=== PATIENT | female | born 1950 | race Two or more races ===

== ENCOUNTER 2019-07-07 14:40 | Inpatient (IN) | payer MEDICARE, OTHER ==
--- NOTE | 2019-07-07 14:59 | PDOC ---
Rapid Medical Evaluation Time Seen by Provider: 07/07/19 14:55 Medical Evaluation: Allergies Allergy/AdvReac Type Severity Reaction Status Date / Time No Known Allergies Allergy Verified 07/07/19 13:47 07/07/19 14:55 Pt with PMH of demention, presents for admission of an infected bed sore on the R buttock since Friday. She was sent from Wound Care. PCP is Dr. Salamanca. Exam: Deferred to provider Orders: Labs, Alvarez culture, IV insert Pt to proceed to the ER for further evaluation Discharge Disposition - Diagnosis Wound infection - Referrals - Patient Instructions - Post Discharge Activity
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
[2019-07-07 16:19] LABS: BASO % 0.5 % (0-2.0); EOS % 0.1 % (0-4.5); HEMATOCRIT 40.5 % (32.4-45.2); HEMOGLOBIN 13.1 GM/dL (10.7-15.3); LYMPH % 15.9 % (8-40); MCH 33.6 pg (25.7-33.7); MCHC 32.5 g/dl (32.0-36.0); MEAN CELL VOLUME 103.6 fl (80-96); MEAN PLT VOLUME 10.5 fl (7.5-11.1); NEUT % 76.5 % (42.8-82.8); PLATELET COUNT 130 K/MM3 (134-434); RBC 3.91 M/mm3 (3.60-5.2); RDW 16.6 % (11.6-15.6); WHITE BLOOD COUNT 18.9 K/mm3 (4.0-10.0)
[2019-07-07 16:32] LABS: VENOUS PC02 32.5 mmHg (38-52); VENOUS PH 7.45 (7.31-7.41); VENOUS PO2 49.4 mmHg (28-48)
[2019-07-07 16:47] LABS: ALBUMIN 2.3 g/dl (3.4-5.0); BILIRUBIN,TOTAL 0.5 mg/dL (0.2-1); BLOOD UREA NITROGEN 75.2 mg/dL (7-18); CALCIUM 8.2 mg/dL (8.5-10.1); CREATININE 1.7 mg/dL (0.55-1.3); POTASSIUM 4.3 mmol/L (3.5-5.1); TOT PROT 6.8 g/dl (6.4-8.2)
[2019-07-07 17:19] LABS: EPI CELLS 8.1 /HPF (0-5/HPF); HYALINE CASTS 33 /lpf (0-8); URINE APPEARANCE CLOUDY; URINE BACTERIA 4.3 /hpf (NEGATIVE); URINE BILIRUBIN NEGATIVE (NEGATIVE); URINE COLOR YELLOW; URINE GLUCOSE (UA) NEGATIVE (NEGATIVE); URINE KETONE NEGATIVE (NEGATIVE); URINE LEUK ESTERASE 1+ (NEGATIVE); URINE NITRITE NEGATIVE (NEGATIVE); URINE PROTEIN TRACE (NEGATIVE); URINE RBC 7 /hpf (0-4); URINE WBC 11 /hpf (0-5)
[2019-07-07] MEDS ORDERED: LACTATED RINGERS SOLUTION 1000 ML INFUS.BAG IV ONE (17:28)
[2019-07-07] MEDS ORDERED: ACETAMINOPHEN 1000 MG/100 ML VIAL (NON FORMULARY) IVPB ONE (17:44)
[2019-07-07] MEDS ORDERED: PIPERACILLIN/TAZOB 3.375 GM 3.375 GM in DEXTROSE 5%-WATER - 50 ML IVPB ONE (17:44)
--- NOTE | 2019-07-07 17:52 | PDOC ---
Documentation entered by Lisette Howard SCRIBE, acting as scribe for Adina Kulkarni MD. Adina Kulkarni MD: This documentation has been prepared by the Lee moreira Adrianna, SCRIBE, under my direction and personally reviewed by me in its entirety. I confirm that the documentation accurately reflects all work, treatment, procedures, and medical decision making performed by me. Attending Attestation - Resident Resident Name: Dylan Gonazlez - ED Attending Attestation I have performed the following: I have examined & evaluated the patient, The case was reviewed & discussed with the resident, I agree w/resident's findings & plan, Exceptions are as noted - HPI HPI: The patient is a 69 year old female, with a significant PMH of dementia and unstageable ulcer on bilateral buttox, who presents to the ED for evaluation of decubitus ulcer. Per pt daughter, she has an aid at home. Has had a decubitus ulcer on the left buttock 5 days ago. The decubitus noted on the right buttock has been present for the past 2 days No fever or chills No prior decubiti Allergies: NKA, NKDA Surgical History: Left tibia repair Social History: Denies EtOH, tobacco, or illicit drug use PCP: Dr. Garcia 07/07/19 17:02 - Physicial Exam PE: 07/07/19 16:58 GENERAL: The patient is in no acute distress, awake and alert. ENT: Ears normal, nares patent, oropharynx clear without exudates. DRY mucous membranes. Poor dentition NECK: Normal range of motion, supple, no nuchal rigidity (+) LAD LUNGS: Breath sounds equal, clear to auscultation bilaterally. No wheezes, and no crackles. HEART: Tachycardia, regular rhythm, normal S1 and S2 without murmur ABDOMEN: Soft, nontender EXTREMITIES: Normal range of motion, no edema. NEUROLOGICAL: Pt non verbal, Cranial nerves II through XII grossly intact. SKIN: Left buttock: decubitus noted, area of skin discoloration measureing 6 cm in diameter, a central opening noted which probes 1-2 cm Right buttocks with deroofed blister?, several, several other smaller blisters noted, skin appears bruised, no purulence noted, no bone visualized - Medical Decision Making 01/15/20 16:55 69-year-old female presenting to the emergency department with daughter due to sacral decubitus Pt daughter became concerned because because the rapidity of the progression of this decubitus DD: Pressure sore, deep tissue infection (necrotizing faciitis), phemphigus vulgaris /TEN/ EKG: Sinus tachycardia, rate of 128 bpm, left axis deviation, no ST elevation or depression, T waves are upright, no pathological Q's Awaiting lab testing Awaiting CT abd and pelvis (r/o necrotizing faciitis) Pt seen in the ER by Dr garcia Will admit this patient 07/07/19 17:04 07/07/19 17:41 Laboratory Tests 07/07/19 07/07/19 07/07/19 16:00 16:00 16:00 WBC 18.9 H Hgb 13.1 Hct 40.5 Plt Count 130 L Sodium 158 H Potassium 4.3 Chloride 129 H Carbon Dioxide 23 Anion Gap 6 L BUN 75.2 H Creatinine 1.7 H Random Glucose 326 H Lactic Acid 3.3 H* Urine WBC (Auto) Urine RBC (Auto) 07/07/19 16:30 WBC Hgb Hct Plt Count Sodium Potassium Chloride Carbon Dioxide Anion Gap BUN Creatinine Random Glucose Lactic Acid Urine WBC (Auto) 11 Urine RBC (Auto) 7 CT: subcutaneous inflammatory changes of the buttocks and coccygeal region without abscess or air, no pelvic fracture or osteomyeleitis 07/07/19 17:45 07/07/19 17:49 Will admit for infected sacral decubitus ulcer Dr. Garcia aware of this patient Dr. Lou has seen this patient in the wound care clinic Discharge - Discharge Information Problems reviewed: Yes Clinical Impression/Diagnosis: Wound infection Condition: Fair - Admission Yes - Follow up/Referral - Patient Discharge Instructions - Post Discharge Activity
[2019-07-07] MEDS ORDERED: ACETAMINOPHEN INJECTION 100 ML IVPB ONE (17:54)
[2019-07-07] MEDS ORDERED: PIPERACILLIN/TAZOB 3.375 GM 3.375 GM/50 ML BAG IVPB ONE (18:07)
--- NOTE | 2019-07-07 19:09 | HP ---
Admitting History and Physical - Primary Care Physician PCP: Clinton Salamanca - Admission History of Present Illness: 69 y/o female presenting to [facility] ER from the wound care clinic for further evaluation of bilateral sacral decubitus ulcers. Pt is severely demented and nonverbal at baseline. Pts daughter is at bedside and reports she first noted a wound to the left gluteal region one week ago. Tried to keep the area clean and placed the pt on a donut pillow. Then noticed a lesion on the right gluteal region two days ago. The right side has rapidly worsened. Daughter denies fevers , chills, diaphoresis, or change in behavior. Was evaluated at PCPs office and referred to the wound care. No recent antibiotic usage. - Smoking History Smoking history: Never smoked Have you smoked in the past 12 months: No - Alcohol/Substance Use Hx Alcohol Use: No Home Medications - Allergies Allergies/Adverse Reactions: Allergies Allergy/AdvReac Type Severity Reaction Status Date / Time No Known Allergies Allergy Verified 07/07/19 13:47 - Home Medications Home Medications: Ambulatory Orders Alendronate Sodium [Fosamax] 1 tab PO DAILY 07/07/19 Ammonium Lactate [Ignacia-Hydrolac] 1 applic TD BID 07/08/19 Physical Examination Vital Signs: Vital Signs Temperature 100.0 F H 07/07/19 18:10 Pulse Rate 92 H 07/07/19 18:10 Respiratory Rate 23 H 07/07/19 16:15 Blood Pressure 114/82 07/07/19 18:10 O2 Sat by Pulse Oximetry (%) 98 07/07/19 18:10 Constitutional: Yes: No Distress HENT: Yes: Atraumatic Neck: Yes: Supple Cardiovascular: Yes: Regular Rate and Rhythm Respiratory: Yes: CTA Bilaterally Gastrointestinal: Yes: Normal Bowel Sounds Extremities: Yes: Other (decub both buttocs, R >L) Neurological: Yes: Alert Labs: CBC, BMP 07/07/19 16:00 07/07/19 16:00 Imaging - Results Cat Scan: Report Reviewed Problem List - Problems (1) Decubitus ulcer Assessment/Plan: iv abx wound care surgery/id on board Code(s): L89.90 - PRESSURE ULCER OF UNSPECIFIED SITE, UNSPECIFIED STAGE (2) Dementia Code(s): F03.90 - UNSPECIFIED DEMENTIA WITHOUT BEHAVIORAL DISTURBANCE (3) Wound infection Code(s): T14.8XXA - OTHER INJURY OF UNSPECIFIED BODY REGION, INITIAL ENCOUNTER; L08.9 - LOCAL INFECTION OF THE SKIN AND SUBCUTANEOUS TISSUE, UNSP Assessment/Plan Laboratory Tests 07/07/19 07/07/19 07/07/19 16:00 16:00 16:00 WBC 18.9 H RBC 3.91 Hgb 13.1 Hct 40.5 MCV 103.6 H MCH 33.6 MCHC 32.5 RDW 16.6 H Plt Count 130 L MPV 10.5 Absolute Neuts (auto) 14.5 H Neutrophils % 76.5 Lymphocytes % 15.9 Monocytes % 7.0 Eosinophils % 0.1 Basophils % 0.5 Nucleated RBC % 0 VBG pH POC VBG pCO2 POC VBG pO2 VBG HCO3 VBG O2 Sat (Mary) VBG Base Excess Sodium 158 H Potassium 4.3 Chloride 129 H Carbon Dioxide 23 Anion Gap 6 L BUN 75.2 H Creatinine 1.7 H Est GFR (CKD-EPI)AfAm 34.56 Est GFR (CKD-EPI)NonAf 29.82 Random Glucose 326 H Lactic Acid 3.3 H* Calcium 8.2 L Total Bilirubin 0.5 AST 55 H ALT 59 Alkaline Phosphatase 65 Total Protein 6.8 Albumin 2.3 L Urine Color Urine Appearance Urine pH Ur Specific [place] Urine Protein Urine Glucose (UA) Urine Ketones Urine Blood Urine Nitrite Urine Bilirubin Urine Urobilinogen Ur Leukocyte Esterase Urine WBC (Auto) Urine RBC (Auto) Urine Casts (Auto) U Pathogenic Cast Auto U Epithel Cells (Auto) Urine Bacteria (Auto) 07/07/19 07/07/19 16:20 16:30 WBC RBC Hgb Hct MCV MCH MCHC RDW Plt Count MPV Absolute Neuts (auto) Neutrophils % Lymphocytes % Monocytes % Eosinophils % Basophils % Nucleated RBC % VBG pH 7.45 H POC VBG pCO2 32.5 L POC VBG pO2 49.4 H VBG HCO3 22.3 L VBG O2 Sat (Mary) 82.8 H VBG Base Excess -0.5 Sodium Potassium Chloride Carbon Dioxide Anion Gap BUN Creatinine Est GFR (CKD-EPI)AfAm Est GFR (CKD-EPI)NonAf Random Glucose Lactic Acid Calcium Total Bilirubin AST ALT Alkaline Phosphatase Total Protein Albumin Urine Color Yellow Urine Appearance Cloudy Urine pH 5.0 Ur Specific [place] 1.026 Urine Protein Trace Urine Glucose (UA) Negative Urine Ketones Negative Urine Blood Negative Urine Nitrite Negative Urine Bilirubin Negative Urine Urobilinogen 1.0 Ur Leukocyte Esterase 1+ H Urine WBC (Auto) 11 Urine RBC (Auto) 7 Urine Casts (Auto) 33 U Pathogenic Cast Auto Negative U Epithel Cells (Auto) 8.1 Urine Bacteria (Auto) 4.3 Active Medications Generic Name Dose Route Start Last Admin Trade Name Freq PRN Reason Stop Dose Admin Acetaminophen 1,000 mg 07/07/19 19:11 Ofirmev Injection - IVPB Q6H PRN FEVER Heparin Sodium (Porcine) 5,000 unit 07/07/19 22:00 07/08/19 10:55 Heparin - SQ 5,000 unit BID [facility] Administration Sodium Chloride 1,000 mls @ 75 mls/hr 07/07/19 23:45 07/08/19 00:25 1/2 Normal Saline IV 75 mls/hr ASDIR [facility] Administration
[2019-07-07] MEDS: HEPARIN NA (PORCINE) 5,000 UNITS/ML 1ML VIAL SQ SCH (22:40)
[2019-07-08 00:12] VITALS: BMI 25.0
[2019-07-08] MEDS: SODIUM CHLORIDE 0.45% 1,000 ML IV SCH (00:25)
[2019-07-08 07:02] LABS: BASO % 0.7 % (0-2.0); EOS % 0.2 % (0-4.5); HEMATOCRIT 38.2 % (32.4-45.2); HEMOGLOBIN 12.5 GM/dL (10.7-15.3); LYMPH % 19.3 % (8-40); MCHC 32.6 g/dl (32.0-36.0); MEAN CELL VOLUME 104.2 fl (80-96); MEAN PLT VOLUME 9.9 fl (7.5-11.1); MONO % 6.1 % (3.8-10.2); NEUT % 73.7 % (42.8-82.8); PLATELET COUNT 105 K/MM3 (134-434); RBC 3.66 M/mm3 (3.60-5.2); RDW 16.5 % (11.6-15.6); WHITE BLOOD COUNT 17.8 K/mm3 (4.0-10.0)
[2019-07-08 07:38] LABS: BILIRUBIN,TOTAL 0.9 mg/dL (0.2-1); BLOOD UREA NITROGEN 55.8 mg/dL (7-18); CALCIUM 8.4 mg/dL (8.5-10.1); CREATININE 1.2 mg/dL (0.55-1.3); POTASSIUM 3.9 mmol/L (3.5-5.1); TOT PROT 6.2 g/dl (6.4-8.2)
[2019-07-08] MEDS: HEPARIN NA (PORCINE) 5,000 UNITS/ML 1ML VIAL SQ SCH ×2 (10:55→21:12)
--- NOTE | 2019-07-08 11:55 | EKG ---
Test Reason : Blood Pressure : / mmHG Vent. Rate : 128 BPM Atrial Rate : 128 BPM P-R Int : 128 ms QRS Dur : 080 ms QT Int : 300 ms P-R-T Axes : 075 -37 012 degrees QTc Int : 438 ms SINUS TACHYCARDIA WITH PREMATURE ATRIAL COMPLEXES POSSIBLE LEFT ATRIAL ENLARGEMENT LEFT AXIS DEVIATION INFERIOR INFARCT , AGE UNDETERMINED ANTEROLATERAL INFARCT , AGE UNDETERMINED ABNORMAL ECG NO PREVIOUS ECGS AVAILABLE Confirmed by FRANCIS TODD MD ([id number]) on 07/08/2019 11:55:35 AM Referred By: Confirmed By:FRANCIS TODD MD
--- NOTE | 2019-07-08 14:39 | CON.ID ---
Consult Consult Specialty:: infectious diseases Referred by:: dr foster Reason for Consultation:: non healing decubitus ulcer - History of Present Illness Chief Complaint: non healing ulcer History of Present Illness: history obtained from the charts and the daughter 69 y/o female presenting to [facility] ER from the wound care clinic for further evaluation of bilateral sacral decubitus ulcers. Pt is severely demented and nonverbal at baseline. Pts daughter is at bedside and reports she first noted a wound to the left gluteal region one week ago. Tried to keep the area clean and placed the pt on a donut pillow. Then noticed a lesion on the right gluteal region two days ago. The right side has rapidly worsened. Daughter denies fevers , chills, diaphoresis, or change in behavior. - History Source History Provided By: Family Member Limitations to Obtaining History: Clinical Condition - Past Medical History ...: No - Alcohol/Substance Use Hx Alcohol Use: No - Smoking History Smoking history: Never smoked Have you smoked in the past 12 months: No Home Medications - Allergies Allergies/Adverse Reactions: Allergies Allergy/AdvReac Type Severity Reaction Status Date / Time No Known Allergies Allergy Verified 07/07/19 13:47 - Home Medications Home Medications: Ambulatory Orders Alendronate Sodium [Fosamax] 1 tab PO DAILY 07/07/19 Ammonium Lactate [Ignacia-Hydrolac] 1 applic TD BID 07/08/19 Review of Systems Unable to obtain ROS, reason: unable to obtain Physical Exam Vital Signs: Vital Signs Temperature 98.0 F 07/08/19 06:41 Pulse Rate 102 H 07/08/19 06:41 Respiratory Rate 18 07/08/19 06:41 Blood Pressure 110/69 07/08/19 06:41 O2 Sat by Pulse Oximetry (%) 100 07/07/19 22:50 Constitutional: Yes: No Distress, Calm HENT: Yes: Atraumatic Cardiovascular: Yes: Regular Rate and Rhythm Respiratory: Yes: Regular, CTA Bilaterally Gastrointestinal: Yes: Normal Bowel Sounds, Soft Musculoskeletal: Yes: Other Extremities: Yes: Other Wound/Incision: Yes: Other (decubitus ulcer) Neurological: Yes: Alert Psychiatric: Yes: Alert Labs: CBC, BMP 07/08/19 06:00 07/08/19 06:00 Imaging - Results Chest X-ray: Report Reviewed, Image Reviewed Cat Scan: Report Reviewed, Image Reviewed Assessment/Plan Problem List - Problems (1) Decubitus ulcer Code(s): L89.90 - PRESSURE ULCER OF UNSPECIFIED SITE, UNSPECIFIED STAGE (2) Dementia Code(s): F03.90 - UNSPECIFIED DEMENTIA WITHOUT BEHAVIORAL DISTURBANCE (3) Wound infection Code(s): T14.8XXA - OTHER INJURY OF UNSPECIFIED BODY REGION, INITIAL ENCOUNTER; L08.9 - LOCAL INFECTION OF THE SKIN AND SUBCUTANEOUS TISSUE, UNSP plan abx wound care off loading rest as per the team
--- NOTE | 2019-07-08 18:47 | PN ---
Progress Note, Physician - Current Medication List Current Medications: Active Medications Acetaminophen (Ofirmev Injection -) 1,000 mg IVPB Q6H PRN PRN Reason: FEVER Heparin Sodium (Porcine) (Heparin -) 5,000 unit SQ BID [facility] Last Admin: 07/08/19 10:55 Dose: 5,000 unit Sodium Chloride (1/2 Normal Saline) 1,000 mls @ 75 mls/hr IV ASDIR [facility] Last Admin: 07/08/19 00:25 Dose: 75 mls/hr - Objective Vital Signs: Vital Signs Temperature 97.3 F L 07/08/19 14:35 Pulse Rate 100 H 07/08/19 14:35 Respiratory Rate 18 07/08/19 16:30 Blood Pressure 101/62 07/08/19 14:35 O2 Sat by Pulse Oximetry (%) 99 07/08/19 16:30 Constitutional: Yes: No Distress HENT: Yes: Atraumatic Neck: Yes: Supple Cardiovascular: Yes: Regular Rate and Rhythm Respiratory: Yes: CTA Bilaterally Gastrointestinal: Yes: Normal Bowel Sounds Musculoskeletal: Yes: Other (decub ulcers at buttocks) Neurological: Yes: Alert, Oriented Labs: CBC, BMP 07/08/19 06:00 07/08/19 06:00 Problem List - Problems (1) Decubitus ulcer Assessment/Plan: iv abx wound care surgery/id on board Code(s): L89.90 - PRESSURE ULCER OF UNSPECIFIED SITE, UNSPECIFIED STAGE (2) Dementia Code(s): F03.90 - UNSPECIFIED DEMENTIA WITHOUT BEHAVIORAL DISTURBANCE (3) Wound infection Code(s): T14.8XXA - OTHER INJURY OF UNSPECIFIED BODY REGION, INITIAL ENCOUNTER; L08.9 - LOCAL INFECTION OF THE SKIN AND SUBCUTANEOUS TISSUE, UNSP
[2019-07-09] MEDS: SODIUM CHLORIDE 0.45% 1,000 ML IV SCH ×2 (05:06→17:31)
[2019-07-09] MEDS: HEPARIN NA (PORCINE) 5,000 UNITS/ML 1ML VIAL SQ SCH ×2 (11:30→21:17)
--- NOTE | 2019-07-09 12:16 | PN ---
Progress Note, Physician - Current Medication List Current Medications: Active Medications Acetaminophen (Ofirmev Injection -) 1,000 mg IVPB Q6H PRN PRN Reason: FEVER Heparin Sodium (Porcine) (Heparin -) 5,000 unit SQ BID [facility] Last Admin: 07/09/19 11:30 Dose: 5,000 unit Sodium Chloride (1/2 Normal Saline) 1,000 mls @ 75 mls/hr IV ASDIR [facility] Last Admin: 07/09/19 05:06 Dose: 75 mls/hr - Objective Vital Signs: Vital Signs Temperature 98.4 F 07/09/19 06:00 Pulse Rate 94 H 07/09/19 06:00 Respiratory Rate 18 07/09/19 06:00 Blood Pressure 102/47 L 07/09/19 06:00 O2 Sat by Pulse Oximetry (%) 98 07/08/19 21:00 Constitutional: Yes: No Distress HENT: Yes: Atraumatic Neck: Yes: Supple Cardiovascular: Yes: Regular Rate and Rhythm Respiratory: Yes: CTA Bilaterally Gastrointestinal: Yes: Normal Bowel Sounds Extremities: Yes: Other (decub ulcer R buttock) Neurological: Yes: Alert, Oriented Labs: CBC, BMP 07/08/19 06:00 07/08/19 06:00 Problem List - Problems (1) Decubitus ulcer Assessment/Plan: iv abx wound care surgery/id on board Code(s): L89.90 - PRESSURE ULCER OF UNSPECIFIED SITE, UNSPECIFIED STAGE (2) Dementia Code(s): F03.90 - UNSPECIFIED DEMENTIA WITHOUT BEHAVIORAL DISTURBANCE (3) Wound infection Code(s): T14.8XXA - OTHER INJURY OF UNSPECIFIED BODY REGION, INITIAL ENCOUNTER; L08.9 - LOCAL INFECTION OF THE SKIN AND SUBCUTANEOUS TISSUE, UNSP
--- NOTE | 2019-07-09 15:30 | PN ---
Progress Note, Physician History of Present Illness: stable doing well no issues - Current Medication List Current Medications: Active Medications Acetaminophen (Ofirmev Injection -) 1,000 mg IVPB Q6H PRN PRN Reason: FEVER Heparin Sodium (Porcine) (Heparin -) 5,000 unit SQ BID [facility] Last Admin: 07/09/19 11:30 Dose: 5,000 unit Sodium Chloride (1/2 Normal Saline) 1,000 mls @ 75 mls/hr IV ASDIR [facility] Last Admin: 07/09/19 05:06 Dose: 75 mls/hr - Objective Vital Signs: Vital Signs Temperature 98.7 F 07/09/19 14:00 Pulse Rate 99 H 07/09/19 14:00 Respiratory Rate 18 07/09/19 14:00 Blood Pressure 109/45 L 07/09/19 14:00 O2 Sat by Pulse Oximetry (%) 98 07/08/19 21:00 Constitutional: Yes: No Distress, Calm Cardiovascular: Yes: S1, S2 Respiratory: Yes: Regular, CTA Bilaterally Gastrointestinal: Yes: Normal Bowel Sounds, Soft Musculoskeletal: Yes: WNL Extremities: Yes: WNL Wound/Incision: Yes: Dressing Dry and Intact Neurological: Yes: Alert, Other Labs: CBC, BMP 07/08/19 06:00 07/08/19 06:00 Assessment/Plan Problem List - Problems (1) Decubitus ulcer Code(s): L89.90 - PRESSURE ULCER OF UNSPECIFIED SITE, UNSPECIFIED STAGE (2) Dementia Code(s): F03.90 - UNSPECIFIED DEMENTIA WITHOUT BEHAVIORAL DISTURBANCE (3) Wound infection Code(s): T14.8XXA - OTHER INJURY OF UNSPECIFIED BODY REGION, INITIAL ENCOUNTER; L08.9 - LOCAL INFECTION OF THE SKIN AND SUBCUTANEOUS TISSUE, UNSP plan abx cx result noted wound care off loading rest as per the team
[2019-07-09] MEDS: ACETAMINOPHEN 1000 MG/100 ML VIAL (NON FORMULARY) IVPB PRN (17:33)
[2019-07-09] MEDS: AMPICILLIN NA/SULBACTAM NA 3 GM in SODIUM CHLORIDE 100 ML IVPB SCH ×2 (17:40→18:11)
[2019-07-10] MEDS: AMPICILLIN NA/SULBACTAM NA 3 GM in SODIUM CHLORIDE 100 ML IVPB SCH ×3 (02:42→17:35)
[2019-07-10] MEDS: SODIUM CHLORIDE 0.45% 1,000 ML IV SCH (07:23)
[2019-07-10] MEDS: HEPARIN NA (PORCINE) 5,000 UNITS/ML 1ML VIAL SQ SCH (09:19)
--- NOTE | 2019-07-10 13:39 | PN ---
Progress Note, Physician - Current Medication List Current Medications: Active Medications Acetaminophen (Ofirmev Injection -) 1,000 mg IVPB Q6H PRN PRN Reason: FEVER Last Admin: 07/09/19 17:33 Dose: 1,000 mg Heparin Sodium (Porcine) (Heparin -) 5,000 unit SQ BID [facility] Last Admin: 07/10/19 09:19 Dose: 5,000 unit Sodium Chloride (1/2 Normal Saline) 1,000 mls @ 75 mls/hr IV ASDIR [facility] Last Admin: 07/10/19 07:23 Dose: 75 mls/hr Ampicillin Sodium/Sulbactam (Sodium 3 gm/ Sodium Chloride) 100 mls @ 200 mls/ hr IVPB Q8H-IV [facility] Last Admin: 07/10/19 09:19 Dose: 200 mls/hr - Objective Vital Signs: Vital Signs Temperature 97.8 F 07/10/19 09:30 Pulse Rate 95 H 07/10/19 09:30 Respiratory Rate 20 07/10/19 09:30 Blood Pressure 100/51 L 07/10/19 09:30 O2 Sat by Pulse Oximetry (%) 98 07/09/19 21:00 Constitutional: Yes: No Distress HENT: Yes: Atraumatic Neck: Yes: Supple Cardiovascular: Yes: Regular Rate and Rhythm Respiratory: Yes: CTA Bilaterally Gastrointestinal: Yes: Normal Bowel Sounds Extremities: Yes: WNL, Other (decub ulcer R buttocks) Neurological: Yes: Alert, Oriented Labs: CBC, BMP 07/08/19 06:00 07/08/19 06:00 Problem List - Problems (1) Decubitus ulcer Assessment/Plan: iv abx wound care surgery/id on board Code(s): L89.90 - PRESSURE ULCER OF UNSPECIFIED SITE, UNSPECIFIED STAGE (2) Dementia Code(s): F03.90 - UNSPECIFIED DEMENTIA WITHOUT BEHAVIORAL DISTURBANCE (3) Wound infection Code(s): T14.8XXA - OTHER INJURY OF UNSPECIFIED BODY REGION, INITIAL ENCOUNTER; L08.9 - LOCAL INFECTION OF THE SKIN AND SUBCUTANEOUS TISSUE, UNSP
--- NOTE | 2019-07-10 16:06 | PN ---
Progress Note, Physician History of Present Illness: Pt is resting comfortably. Daughter at bedside states she has become more responsive. Currently afebrile. - Current Medication List Current Medications: Active Medications Acetaminophen (Ofirmev Injection -) 1,000 mg IVPB Q6H PRN PRN Reason: FEVER Last Admin: 07/09/19 17:33 Dose: 1,000 mg Heparin Sodium (Porcine) (Heparin -) 5,000 unit SQ BID [facility] Last Admin: 07/10/19 09:19 Dose: 5,000 unit Sodium Chloride (1/2 Normal Saline) 1,000 mls @ 75 mls/hr IV [facility]IR [facility] Last Admin: 07/10/19 07:23 Dose: 75 mls/hr Ampicillin Sodium/Sulbactam (Sodium 3 gm/ Sodium Chloride) 100 mls @ 200 mls/ hr IVPB Q8H-IV [facility] Last Admin: 07/10/19 09:19 Dose: 200 mls/hr - Objective Vital Signs: Vital Signs Temperature 97.8 F 07/10/19 09:30 Pulse Rate 95 H 07/10/19 09:30 Respiratory Rate 07/10/19 09:30 Blood Pressure 100/51 L 07/10/19 09:30 O2 Sat by Pulse Oximetry (%) 98 07/09/19 21:00 Constitutional: Yes: No Distress, Calm Cardiovascular: Yes: Regular Rate and Rhythm Respiratory: Yes: CTA Bilaterally Gastrointestinal: Yes: Normal Bowel Sounds, Soft Wound/Incision: Yes: Dressing Dry and Intact Neurological: Yes: Weakness Labs: CBC, BMP 07/08/19 06:00 07/08/19 06:00 Microbiology 07/07/19 16:00 Buttock - Left Gram Stain - Final 07/07/19 16:00 Buttock - Left Wound Culture - Final Proteus Mirabilis Staphylococcus Coagulase Neg 07/07/19 16:30 Blood - Peripheral Venous Blood Culture - Preliminary NO GROWTH OBTAINED AFTER 48 HOURS, INCUBATION TO CONTINUE FOR 3 DAYS. 07/07/19 16:00 Blood - Peripheral Venous Blood Culture - Preliminary NO GROWTH OBTAINED AFTER 48 HOURS, INCUBATION TO CONTINUE FOR 3 DAYS. 07/07/19 16:30 Urine - Urine - Catheterized Urine Culture - Final NO GROWTH OBTAINED - ....Imaging Cat Scan: Report Reviewed Problem List - Problems (1) Decubitus ulcer Code(s): L89.90 - PRESSURE ULCER OF UNSPECIFIED SITE, UNSPECIFIED STAGE (2) Dementia Code(s): F03.90 - UNSPECIFIED DEMENTIA WITHOUT BEHAVIORAL DISTURBANCE (3) Wound infection Code(s): T14.8XXA - OTHER INJURY OF UNSPECIFIED BODY REGION, INITIAL ENCOUNTER; L08.9 - LOCAL INFECTION OF THE SKIN AND SUBCUTANEOUS TISSUE, UNSP Assessment/Plan Infected DU Fever Leukocytosis TERENCE Dementia -- continue Unasyn -- CT without evidence of OM -- wbc trending down, fevers appear to be resolving -- continue monitor labs/vitals -- wound care, offloading
[2019-07-10] MEDS ORDERED: PT OWN MED DRAWER 7, Y5N ONE (17:33)
[2019-07-11] MEDS: HEPARIN NA (PORCINE) 5,000 UNITS/ML 1ML VIAL SQ SCH ×3 (00:08→23:36)
[2019-07-11] MEDS: SODIUM CHLORIDE 0.45% 1,000 ML IV SCH (00:08)
[2019-07-11] MEDS ORDERED: PT OWN MED DRAWER 7, Y5N ONE ×3 (01:57→18:09)
[2019-07-11] MEDS: AMPICILLIN NA/SULBACTAM NA 3 GM in SODIUM CHLORIDE 100 ML IVPB SCH ×3 (02:21→18:18)
[2019-07-11 09:02] LABS: BASO % 0.4 % (0-2.0); EOS % 1.2 % (0-4.5); HEMATOCRIT 29.3 % (32.4-45.2); HEMOGLOBIN 9.8 GM/dL (10.7-15.3); MCH 34.3 pg (25.7-33.7); MCHC 33.5 g/dl (32.0-36.0); MEAN CELL VOLUME 102.6 fl (80-96); MEAN PLT VOLUME 9.3 fl (7.5-11.1); MONO % 4.1 % (3.8-10.2); NEUT % 69.3 % (42.8-82.8); PLATELET COUNT 101 K/MM3 (134-434); RBC 2.85 M/mm3 (3.60-5.2); RDW 15.9 % (11.6-15.6)
[2019-07-11 09:28] LABS: ALBUMIN 1.6 g/dl (3.4-5.0); BILIRUBIN,TOTAL 0.4 mg/dL (0.2-1); BLOOD UREA NITROGEN 13.9 mg/dL (7-18); CREATININE 0.6 mg/dL (0.55-1.3); POTASSIUM 3.6 mmol/L (3.5-5.1)
--- NOTE | 2019-07-11 12:13 | PN ---
Progress Note (short form) - Note Progress Note: Patient was seen in wound clinic with her daughter. History : Dementia , Functional Paraplegia. Daughter filled in the details. Patient has recently deteriorated with Dementia .Daughter had bought a Doughnut to relive pressure . Patient was seen by Procurement Assistant who noticed deterioration of Buttock skin. Superficial skin peeling-off, with Erythema, odor, Necrotic tissue Left Buttock .Unstage-able Pressure necrosis L Buttock. Microbiology 07/07/19 16:00 Buttock - Left Gram Stain - Final 07/07/19 16:00 Buttock - Left Wound Culture - Final Proteus Mirabilis Staphylococcus Coagulase Neg Selected Entries 07/11/19 10:38 Temperature 99.3 F Pulse Rate 104 H Blood Pressure 131/61 Laboratory Tests 07/11/19 07/11/19 07:00 07:00 WBC 11.0 H RBC 2.85 L Hgb 9.8 L Hct 29.3 L D MCV 102.6 H MCH 34.3 H RDW 15.9 H Plt Count 101 L Nucleated RBC % 1 H Sodium 150 H Chloride 121 H Random Glucose 147 H Calcium 8.0 L AST 68 H ALT 65 H Total Protein 5.0 L Albumin 1.6 L Problem : Very poor Nutrition feverish, High White Count , inability to turn , needs total care. Treatment: De-Vitalized tissue removed using Moist Saline gauze tissue erythema, Clean daily with Normal Saline gauze, Apply 4x4 gauze soaked in diluted Betadine /NSS , wrung -out-gauze, not to apply excessive fluid on wound, avoid skin maceration. Relief of Pressure Turn side to side Low Pressure Mattress Daughter would like to take Mother home and take care of her at home with two Aides.
[2019-07-11 13:04] LABS: ANISOCYTOSIS 1+; MACROCYTOSIS 0; OVALOCYTE 1+; PLATELET ESTIMATE DECREASED; TEAR DROP CELLS 1+
--- NOTE | 2019-07-11 18:23 | PN ---
Progress Note, Physician - Current Medication List Current Medications: Active Medications Acetaminophen (Ofirmev Injection -) 1,000 mg IVPB Q6H PRN PRN Reason: FEVER Last Admin: 07/09/19 17:33 Dose: 1,000 mg Heparin Sodium (Porcine) (Heparin -) 5,000 unit SQ BID [facility] Last Admin: 07/11/19 10:43 Dose: 5,000 unit Sodium Chloride (1/2 Normal Saline) 1,000 mls @ 75 mls/hr IV [facility]IR [facility] Last Admin: 07/11/19 00:08 Dose: 75 mls/hr Ampicillin Sodium/Sulbactam (Sodium 3 gm/ Sodium Chloride) 100 mls @ 200 mls/ hr IVPB Q8H-IV [facility] Last Admin: 07/11/19 18:18 Dose: 200 mls/hr - Objective Vital Signs: Vital Signs Temperature 99.3 F 07/11/19 14:00 Pulse Rate 93 H 07/11/19 14:00 Respiratory Rate 20 07/11/19 14:00 Blood Pressure 120/75 07/11/19 14:00 O2 Sat by Pulse Oximetry (%) 98 07/10/19 21:00 Constitutional: Yes: No Distress HENT: Yes: Atraumatic Neck: Yes: Supple Cardiovascular: Yes: Regular Rate and Rhythm Respiratory: Yes: CTA Bilaterally Gastrointestinal: Yes: Normal Bowel Sounds Extremities: Yes: Other ([place] L buttocks decub) Edema: No Peripheral Pulses WNL: Yes Neurological: Yes: Alert Labs: CBC, BMP 07/11/19 07:00 07/11/19 07:00 Problem List - Problems (1) Decubitus ulcer Assessment/Plan: iv abx wound care surgery/id on board Code(s): L89.90 - PRESSURE ULCER OF UNSPECIFIED SITE, UNSPECIFIED STAGE (2) Dementia Code(s): F03.90 - UNSPECIFIED DEMENTIA WITHOUT BEHAVIORAL DISTURBANCE (3) Wound infection Code(s): T14.8XXA - OTHER INJURY OF UNSPECIFIED BODY REGION, INITIAL ENCOUNTER; L08.9 - LOCAL INFECTION OF THE SKIN AND SUBCUTANEOUS TISSUE, UNSP
--- NOTE | 2019-07-11 18:47 | PN ---
Progress Note, Physician History of Present Illness: Pt is weak but alert, without distress. Tmax of 99.3. Daughter is at bedside. - Current Medication List Current Medications: Active Medications Acetaminophen (Ofirmev Injection -) 1,000 mg IVPB Q6H PRN PRN Reason: FEVER Last Admin: 07/09/19 17:33 Dose: 1,000 mg Heparin Sodium (Porcine) (Heparin -) 5,000 unit SQ BID [facility] Last Admin: 07/11/19 10:43 Dose: 5,000 unit Sodium Chloride (1/2 Normal Saline) 1,000 mls @ 75 mls/hr IV ASDIR [facility] Last Admin: 07/11/19 00:08 Dose: 75 mls/hr Ampicillin Sodium/Sulbactam (Sodium 3 gm/ Sodium Chloride) 100 mls @ 200 mls/ hr IVPB Q8H-IV [facility] Last Admin: 07/11/19 18:18 Dose: 200 mls/hr - Objective Vital Signs: Vital Signs Temperature 99.3 F 07/11/19 14:00 Pulse Rate 93 H 07/11/19 14:00 Respiratory Rate 07/11/19 14:00 Blood Pressure 120/75 07/11/19 14:00 O2 Sat by Pulse Oximetry (%) 98 07/10/19 21:00 Constitutional: Yes: No Distress, Calm Cardiovascular: Yes: Regular Rate and Rhythm Respiratory: Yes: Regular Gastrointestinal: Yes: Normal Bowel Sounds, Soft Genitourinary: Yes: WNL Extremities: Yes: WNL Integumentary: Yes: WNL Wound/Incision: Yes: Dressing Dry and Intact Neurological: Yes: Weakness Labs: CBC, BMP 07/11/19 07:00 07/11/19 07:00 Microbiology 07/07/19 16:30 Blood - Peripheral Venous Blood Culture - Preliminary NO GROWTH OBTAINED AFTER 96 HOURS, INCUBATION TO CONTINUE FOR 1 DAYS. 07/07/19 16:00 Blood - Peripheral Venous Blood Culture - Preliminary NO GROWTH OBTAINED AFTER 96 HOURS, INCUBATION TO CONTINUE FOR 1 DAYS. 07/07/19 16:00 Buttock - Left Gram Stain - Final 07/07/19 16:00 Buttock - Left Wound Culture - Final Proteus Mirabilis Staphylococcus Coagulase Neg 07/07/19 16:30 Urine - Urine - Catheterized Urine Culture - Final NO GROWTH OBTAINED Problem List - Problems (1) Decubitus ulcer Code(s): L89.90 - PRESSURE ULCER OF UNSPECIFIED SITE, UNSPECIFIED STAGE (2) Dementia Code(s): F03.90 - UNSPECIFIED DEMENTIA WITHOUT BEHAVIORAL DISTURBANCE (3) Wound infection Code(s): T14.8XXA - OTHER INJURY OF UNSPECIFIED BODY REGION, INITIAL ENCOUNTER; L08.9 - LOCAL INFECTION OF THE SKIN AND SUBCUTANEOUS TISSUE, UNSP Assessment/Plan Infected DU Fever Leukocytosis TERENCE Dementia -- continue Unasyn -- CT without evidence of OM -- follow up wound culture isolates -- wbc trended down, continue monitor temps -- wound care, offloading/frequent turning
[2019-07-12] MEDS ORDERED: PT OWN MED DRAWER 7, Y5N ONE ×2 (01:31→17:14)
[2019-07-12] MEDS: AMPICILLIN NA/SULBACTAM NA 3 GM in SODIUM CHLORIDE 100 ML IVPB SCH ×3 (01:38→17:16)
[2019-07-12] MEDS: SODIUM CHLORIDE 0.45% 1,000 ML IV SCH (09:50)
[2019-07-12] MEDS: HEPARIN NA (PORCINE) 5,000 UNITS/ML 1ML VIAL SQ SCH ×2 (12:25→22:07)
--- NOTE | 2019-07-12 14:15 | PN ---
Progress Note, Physician History of Present Illness: stable looks much better awaiting for sensitivites - Current Medication List Current Medications: Active Medications Acetaminophen (Ofirmev Injection -) 1,000 mg IVPB Q6H PRN PRN Reason: FEVER Last Admin: 07/09/19 17:33 Dose: 1,000 mg Heparin Sodium (Porcine) (Heparin -) 5,000 unit SQ BID [facility] Last Admin: 07/12/19 12:25 Dose: 5,000 unit Sodium Chloride (1/2 Normal Saline) 1,000 mls @ 75 mls/hr IV [facility]IR [facility] Last Admin: 07/12/19 09:50 Dose: 75 mls/hr Ampicillin Sodium/Sulbactam (Sodium 3 gm/ Sodium Chloride) 100 mls @ 200 mls/ hr IVPB Q8H-IV [facility] Last Admin: 07/12/19 09:50 Dose: 200 mls/hr - Objective Vital Signs: Vital Signs Temperature 97.3 F L 07/12/19 06:00 Pulse Rate 94 H 07/12/19 06:00 Respiratory Rate 07/12/19 06:00 Blood Pressure 121/58 L 07/12/19 06:00 O2 Sat by Pulse Oximetry (%) 98 07/11/19 21:00 Constitutional: Yes: No Distress, Calm Cardiovascular: Yes: S1, S2 Respiratory: Yes: Regular, CTA Bilaterally Gastrointestinal: Yes: Normal Bowel Sounds, Soft Musculoskeletal: Yes: WNL Extremities: Yes: WNL Neurological: Yes: Alert, Other Psychiatric: Yes: Alert Labs: CBC, BMP 07/11/19 07:00 07/11/19 07:00 Assessment/Plan Problem List - Problems (1) Decubitus ulcer Code(s): L89.90 - PRESSURE ULCER OF UNSPECIFIED SITE, UNSPECIFIED STAGE (2) Dementia Code(s): F03.90 - UNSPECIFIED DEMENTIA WITHOUT BEHAVIORAL DISTURBANCE (3) Wound infection Code(s): T14.8XXA - OTHER INJURY OF UNSPECIFIED BODY REGION, INITIAL ENCOUNTER; L08.9 - LOCAL INFECTION OF THE SKIN AND SUBCUTANEOUS TISSUE, UNSP plan abx monitor wbc wound care rest as per the team
--- NOTE | 2019-07-12 17:06 | PN ---
Progress Note, Physician - Current Medication List Current Medications: Active Medications Acetaminophen (Ofirmev Injection -) 1,000 mg IVPB Q6H PRN PRN Reason: FEVER Last Admin: 07/09/19 17:33 Dose: 1,000 mg Heparin Sodium (Porcine) (Heparin -) 5,000 unit SQ BID [facility] Last Admin: 07/12/19 12:25 Dose: 5,000 unit Sodium Chloride (1/2 Normal Saline) 1,000 mls @ 75 mls/hr IV [facility]IR [facility] Last Admin: 07/12/19 09:50 Dose: 75 mls/hr Ampicillin Sodium/Sulbactam (Sodium 3 gm/ Sodium Chloride) 100 mls @ 200 mls/ hr IVPB Q8H-IV [facility] Last Admin: 07/12/19 09:50 Dose: 200 mls/hr - Objective Vital Signs: Vital Signs Temperature 99.5 F 07/12/19 15:00 Pulse Rate 101 H 07/12/19 15:00 Respiratory Rate 20 07/12/19 15:00 Blood Pressure 119/66 07/12/19 15:00 O2 Sat by Pulse Oximetry (%) 98 07/11/19 21:00 Constitutional: Yes: No Distress HENT: Yes: Atraumatic Neck: Yes: Supple Cardiovascular: Yes: Regular Rate and Rhythm Respiratory: Yes: CTA Bilaterally Gastrointestinal: Yes: Normal Bowel Sounds Extremities: Yes: WNL, Other (buttocks decub...better) Neurological: Yes: Alert Labs: CBC, BMP 07/11/19 07:00 07/11/19 07:00 Problem List - Problems (1) Decubitus ulcer Assessment/Plan: iv abx wound care surgery/id on board Code(s): L89.90 - PRESSURE ULCER OF UNSPECIFIED SITE, UNSPECIFIED STAGE (2) Dementia Code(s): F03.90 - UNSPECIFIED DEMENTIA WITHOUT BEHAVIORAL DISTURBANCE (3) Wound infection Code(s): T14.8XXA - OTHER INJURY OF UNSPECIFIED BODY REGION, INITIAL ENCOUNTER; L08.9 - LOCAL INFECTION OF THE SKIN AND SUBCUTANEOUS TISSUE, UNSP
[2019-07-13] MEDS: SODIUM CHLORIDE 0.45% 1,000 ML IV SCH ×2 (00:52→21:07)
[2019-07-13] MEDS ORDERED: PT OWN MED DRAWER 7, Y5N ONE ×3 (01:48→18:02)
[2019-07-13] MEDS: AMPICILLIN NA/SULBACTAM NA 3 GM in SODIUM CHLORIDE 100 ML IVPB SCH ×3 (01:53→18:07)
[2019-07-13] MEDS: HEPARIN NA (PORCINE) 5,000 UNITS/ML 1ML VIAL SQ SCH ×2 (09:31→22:08)
--- NOTE | 2019-07-13 12:26 | PN ---
Progress Note, Physician History of Present Illness: stable looks much better - Current Medication List Current Medications: Active Medications Acetaminophen (Ofirmev Injection -) 1,000 mg IVPB Q6H PRN PRN Reason: FEVER Last Admin: 07/09/19 17:33 Dose: 1,000 mg Heparin Sodium (Porcine) (Heparin -) 5,000 unit SQ BID [facility] Last Admin: 07/13/19 09:31 Dose: 5,000 unit Sodium Chloride (1/2 Normal Saline) 1,000 mls @ 75 mls/hr IV [facility] Last Admin: 07/13/19 00:52 Dose: 75 mls/hr Ampicillin Sodium/Sulbactam (Sodium 3 gm/ Sodium Chloride) 100 mls @ 200 mls/ hr IVPB Q8H-IV [facility] Last Admin: 07/13/19 09:30 Dose: 200 mls/hr - Objective Vital Signs: Vital Signs Temperature 100.5 F H 07/13/19 08:57 Pulse Rate 108 H 07/13/19 08:57 Respiratory Rate 07/13/19 08:57 Blood Pressure 116/65 07/13/19 08:57 O2 Sat by Pulse Oximetry (%) 98 07/12/19 21:00 Constitutional: Yes: No Distress, Calm Cardiovascular: Yes: S1, S2 Respiratory: Yes: Regular, CTA Bilaterally Gastrointestinal: Yes: Normal Bowel Sounds, Soft Genitourinary: Yes: Other Musculoskeletal: Yes: Other Extremities: Yes: Other Neurological: Yes: Alert Psychiatric: Yes: Other Labs: CBC, BMP 07/11/19 07:00 07/11/19 07:00 Assessment/Plan Problem List - Problems (1) Decubitus ulcer Code(s): L89.90 - PRESSURE ULCER OF UNSPECIFIED SITE, UNSPECIFIED STAGE (2) Dementia Code(s): F03.90 - UNSPECIFIED DEMENTIA WITHOUT BEHAVIORAL DISTURBANCE (3) Wound infection Code(s): T14.8XXA - OTHER INJURY OF UNSPECIFIED BODY REGION, INITIAL ENCOUNTER; L08.9 - LOCAL INFECTION OF THE SKIN AND SUBCUTANEOUS TISSUE, UNSP plan abx monitor wbc wound care rest as per the team will deescalate tomorrow to oral
[2019-07-13] MEDS: ACETAMINOPHEN 1000 MG/100 ML VIAL (NON FORMULARY) IVPB PRN ×2 (15:17→22:08)
--- NOTE | 2019-07-13 17:00 | PN ---
Progress Note, Physician - Current Medication List Current Medications: Active Medications Acetaminophen (Ofirmev Injection -) 1,000 mg IVPB Q6H PRN PRN Reason: FEVER Last Admin: 07/13/19 15:17 Dose: 1,000 mg Heparin Sodium (Porcine) (Heparin -) 5,000 unit SQ BID [facility] Last Admin: 07/13/19 09:31 Dose: 5,000 unit Sodium Chloride (1/2 Normal Saline) 1,000 mls @ 75 mls/hr IV [facility] Last Admin: 07/13/19 00:52 Dose: 75 mls/hr Ampicillin Sodium/Sulbactam (Sodium 3 gm/ Sodium Chloride) 100 mls @ 200 mls/ hr IVPB Q8H-IV [facility] Last Admin: 07/13/19 09:30 Dose: 200 mls/hr - Objective Vital Signs: Vital Signs Temperature 102.9 F H 07/13/19 14:00 Pulse Rate 110 H 07/13/19 14:00 Respiratory Rate 85 H 07/13/19 14:00 Blood Pressure 131/57 L 07/13/19 14:00 O2 Sat by Pulse Oximetry (%) 98 07/13/19 09:00 Constitutional: Yes: No Distress HENT: Yes: Atraumatic Neck: Yes: Supple Cardiovascular: Yes: Regular Rate and Rhythm Respiratory: Yes: CTA Bilaterally Gastrointestinal: Yes: Normal Bowel Sounds Extremities: Yes: WNL, Other (decub at buttocks) Neurological: Yes: Alert, Oriented Labs: CBC, BMP 07/11/19 07:00 07/11/19 07:00 Problem List - Problems (1) Decubitus ulcer Assessment/Plan: iv abx wound care surgery/id on board Code(s): L89.90 - PRESSURE ULCER OF UNSPECIFIED SITE, UNSPECIFIED STAGE (2) Dementia Code(s): F03.90 - UNSPECIFIED DEMENTIA WITHOUT BEHAVIORAL DISTURBANCE (3) Wound infection Code(s): T14.8XXA - OTHER INJURY OF UNSPECIFIED BODY REGION, INITIAL ENCOUNTER; L08.9 - LOCAL INFECTION OF THE SKIN AND SUBCUTANEOUS TISSUE, UNSP
[2019-07-14] MEDS: SODIUM CHLORIDE 0.45% 1,000 ML IV SCH ×2 (01:15→12:27)
[2019-07-14] MEDS: AMPICILLIN NA/SULBACTAM NA 3 GM in SODIUM CHLORIDE 100 ML IVPB SCH ×3 (02:28→19:04)
[2019-07-14] MEDS ORDERED: PT OWN MED DRAWER 7, Y5N ONE ×2 (09:32→21:11)
[2019-07-14] MEDS: HEPARIN NA (PORCINE) 5,000 UNITS/ML 1ML VIAL SQ SCH (09:39)
--- NOTE | 2019-07-14 11:04 | PN ---
Progress Note, Physician History of Present Illness: stable this morning spiked fevers couple of times daughter in room - Current Medication List Current Medications: Active Medications Acetaminophen (Ofirmev Injection -) 1,000 mg IVPB Q6H PRN PRN Reason: FEVER Last Admin: 07/13/19 22:08 Dose: 1,000 mg Heparin Sodium (Porcine) (Heparin -) 5,000 unit SQ BID [facility] Last Admin: 07/14/19 09:39 Dose: 5,000 unit Sodium Chloride (1/2 Normal Saline) 1,000 mls @ 75 mls/hr IV ASDIR [facility] Last Admin: 07/14/19 01:15 Dose: Not Given Ampicillin Sodium/Sulbactam (Sodium 3 gm/ Sodium Chloride) 100 mls @ 200 mls/ hr IVPB Q8H-IV [facility] Last Admin: 07/14/19 09:39 Dose: 200 mls/hr - Objective Vital Signs: Vital Signs Temperature 98.8 F 07/14/19 06:00 Pulse Rate 94 H 07/14/19 06:00 Respiratory Rate 07/14/19 06:00 Blood Pressure 138/69 07/14/19 06:00 O2 Sat by Pulse Oximetry (%) 98 07/13/19 21:00 Constitutional: Yes: No Distress, Calm Cardiovascular: Yes: S1, S2 Respiratory: Yes: Regular, CTA Bilaterally Gastrointestinal: Yes: Normal Bowel Sounds, Soft Musculoskeletal: Yes: WNL Extremities: Yes: Other Neurological: Yes: Alert Psychiatric: Yes: Other Labs: CBC, BMP 07/11/19 07:00 07/11/19 07:00 Assessment/Plan Problem List - Problems (1) Decubitus ulcer Code(s): L89.90 - PRESSURE ULCER OF UNSPECIFIED SITE, UNSPECIFIED STAGE (2) Dementia Code(s): F03.90 - UNSPECIFIED DEMENTIA WITHOUT BEHAVIORAL DISTURBANCE (3) Wound infection Code(s): T14.8XXA - OTHER INJURY OF UNSPECIFIED BODY REGION, INITIAL ENCOUNTER; L08.9 - LOCAL INFECTION OF THE SKIN AND SUBCUTANEOUS TISSUE, UNSP fever plan continue abx patient spiked fevers will check a cbc continue current mgmt
[2019-07-14 16:15] LABS: HEMATOCRIT 31.1 % (32.4-45.2); HEMOGLOBIN 10.4 GM/dL (10.7-15.3); MCH 35.1 pg (25.7-33.7); MCHC 33.6 g/dl (32.0-36.0); MEAN CELL VOLUME 104.5 fl (80-96); MEAN PLT VOLUME 10.8 fl (7.5-11.1); RBC 2.97 M/mm3 (3.60-5.2); RDW 16.5 % (11.6-15.6); WHITE BLOOD COUNT 9.4 K/mm3 (4.0-10.0)
[2019-07-14 16:51] LABS: PLATELET COUNT 127 K/MM3 (134-434)
--- NOTE | 2019-07-14 17:07 | PN ---
Progress Note, Physician History of Present Illness: had fever - Current Medication List Current Medications: Active Medications Acetaminophen (Ofirmev Injection -) 1,000 mg IVPB Q6H PRN PRN Reason: FEVER Last Admin: 07/13/19 22:08 Dose: 1,000 mg Heparin Sodium (Porcine) (Heparin -) 5,000 unit SQ BID [facility] Last Admin: 07/14/19 09:39 Dose: 5,000 unit Sodium Chloride (1/2 Normal Saline) 1,000 mls @ 75 mls/hr IV [facility] Last Admin: 07/14/19 12:27 Dose: 75 mls/hr Ampicillin Sodium/Sulbactam (Sodium 3 gm/ Sodium Chloride) 100 mls @ 200 mls/ hr IVPB Q8H-IV [facility] Last Admin: 07/14/19 09:39 Dose: 200 mls/hr - Objective Vital Signs: Vital Signs Temperature 100.3 F H 07/14/19 15:00 Pulse Rate 107 H 07/14/19 15:00 Respiratory Rate 07/14/19 15:00 Blood Pressure 116/72 07/14/19 15:00 O2 Sat by Pulse Oximetry (%) 98 07/13/19 21:00 Constitutional: Yes: No Distress HENT: Yes: Atraumatic Neck: Yes: Supple Cardiovascular: Yes: Regular Rate and Rhythm Respiratory: Yes: CTA Bilaterally Gastrointestinal: Yes: Normal Bowel Sounds Extremities: Yes: WNL, Other (buttocks decub) Neurological: Yes: Alert Labs: CBC, BMP 07/14/19 15:20 07/11/19 07:00 Problem List - Problems (1) Decubitus ulcer Assessment/Plan: iv abx wound care patient will need a low air loss mattress. patient has limited mobility due to advance denmentia. patient will require frequent body position changes, which she cannot complete independantly and are not feasible with a regular bed o alleviate pain,prevent aspiration and prevent further skin breakdown. patient has 2 woundsstage 2 pressure injury on her sacrum measuring 12x14 cm, 0.1 depth and an un stageable pressure ijury on her left buttock. Code(s): L89.90 - PRESSURE ULCER OF UNSPECIFIED SITE, UNSPECIFIED STAGE (2) Dementia Code(s): F03.90 - UNSPECIFIED DEMENTIA WITHOUT BEHAVIORAL DISTURBANCE (3) Wound infection Code(s): T14.8XXA - OTHER INJURY OF UNSPECIFIED BODY REGION, INITIAL ENCOUNTER; L08.9 - LOCAL INFECTION OF THE SKIN AND SUBCUTANEOUS TISSUE, UNSP
[2019-07-15] MEDS: SODIUM CHLORIDE 0.45% 1,000 ML IV SCH ×2 (00:49→03:11)
[2019-07-15] MEDS ORDERED: PT OWN MED DRAWER 7, Y5N ONE ×2 (00:50→09:34)
[2019-07-15] MEDS: ACETAMINOPHEN 1000 MG/100 ML VIAL (NON FORMULARY) IVPB PRN (00:52)
[2019-07-15] MEDS: AMPICILLIN NA/SULBACTAM NA 3 GM in SODIUM CHLORIDE 100 ML IVPB SCH ×2 (03:42→09:46)
--- NOTE | 2019-07-15 10:50 | PN ---
Progress Note, Physician History of Present Illness: spiking fever again clinically looks good - Current Medication List Current Medications: Active Medications Sodium Chloride (1/2 Normal Saline) 1,000 mls @ 75 mls/hr IV [facility] Last Admin: 07/15/19 03:11 Dose: 75 mls/hr - Objective Vital Signs: Vital Signs Temperature 97.9 F 07/15/19 09:44 Pulse Rate 105 H 07/15/19 09:44 Respiratory Rate 07/15/19 09:44 Blood Pressure 123/85 07/15/19 09:44 O2 Sat by Pulse Oximetry (%) 98 07/14/19 21:00 Constitutional: Yes: No Distress, Calm Cardiovascular: Yes: S1, S2 Respiratory: Yes: Other Gastrointestinal: Yes: Normal Bowel Sounds, Soft Musculoskeletal: Yes: WNL Extremities: Yes: Other Neurological: Yes: Alert Labs: CBC, BMP 07/14/19 15:20 07/11/19 07:00 Assessment/Plan Problem List - Problems (1) Decubitus ulcer Code(s): L89.90 - PRESSURE ULCER OF UNSPECIFIED SITE, UNSPECIFIED STAGE (2) Dementia Code(s): F03.90 - UNSPECIFIED DEMENTIA WITHOUT BEHAVIORAL DISTURBANCE (3) Wound infection Code(s): T14.8XXA - OTHER INJURY OF UNSPECIFIED BODY REGION, INITIAL ENCOUNTER; L08.9 - LOCAL INFECTION OF THE SKIN AND SUBCUTANEOUS TISSUE, UNSP fever plan wound looks good spiked fever will change abx await for cx reports asp precautions
--- NOTE | 2019-07-15 11:59 | PN ---
Progress Note, Physician History of Present Illness: having fevers - Current Medication List Current Medications: Active Medications Sodium Chloride (1/2 Normal Saline) 1,000 mls @ 75 mls/hr IV [facility] Last Admin: 07/15/19 03:11 Dose: 75 mls/hr Piperacillin Sod/Tazobactam (Sod 3.375 gm/ Dextrose) 50 mls @ 100 mls/hr IVPB Q8H-IV [facility]; Protocol - Objective Vital Signs: Vital Signs Temperature 97.9 F 07/15/19 09:44 Pulse Rate 105 H 07/15/19 09:44 Respiratory Rate 07/15/19 09:44 Blood Pressure 123/85 07/15/19 09:44 O2 Sat by Pulse Oximetry (%) 98 07/14/19 21:00 Constitutional: Yes: No Distress HENT: Yes: Atraumatic Neck: Yes: Supple Cardiovascular: Yes: Regular Rate and Rhythm Respiratory: Yes: CTA Bilaterally Gastrointestinal: Yes: Normal Bowel Sounds Extremities: Yes: WNL, Other (decub sacral/buttocks...getting betetr) Edema: No Peripheral Pulses WNL: Yes Neurological: Yes: Alert Labs: CBC, BMP 07/14/19 15:20 07/11/19 07:00 Problem List - Problems (1) Decubitus ulcer Assessment/Plan: iv abx wound care patient will need a low air loss mattress. patient has limited mobility due to advance denmentia. patient will require frequent body position changes, which she cannot complete independantly and are not feasible with a regular bed o alleviate pain,prevent aspiration and prevent further skin breakdown. patient has 2 woundsstage 2 pressure injury on her sacrum measuring 12x14 cm, 0.1 depth and an un stageable pressure ijury on her left buttock. Code(s): L89.90 - PRESSURE ULCER OF UNSPECIFIED SITE, UNSPECIFIED STAGE (2) Dementia Code(s): F03.90 - UNSPECIFIED DEMENTIA WITHOUT BEHAVIORAL DISTURBANCE (3) Wound infection Code(s): T14.8XXA - OTHER INJURY OF UNSPECIFIED BODY REGION, INITIAL ENCOUNTER; L08.9 - LOCAL INFECTION OF THE SKIN AND SUBCUTANEOUS TISSUE, UNSP
[2019-07-15] MEDS ORDERED: ACETAMINOPHEN 650 MG/20.3 ML ORAL SOLUTION (CUPS) PO ONE (14:45)
[2019-07-15] MEDS ORDERED: PIPERACILLIN/TAZOBACTAM 3.375 GM VIAL IVPB ONE (17:16)
[2019-07-15] MEDS ORDERED: DEXTROSE 5%-WATER - 50 ML IVPB ONE (17:16)
[2019-07-15] MEDS: PIPERACILLIN/TAZOB 3.375 GM 3.375 GM in DEXTROSE 5%-WATER - 50 ML IVPB SCH (17:19)
[2019-07-15] MEDS: ACETAMINOPHEN 325 MG TABLET (FP) PO PRN (22:36)
[2019-07-15] MEDS: HEPARIN NA (PORCINE) 5,000 UNITS/ML 1ML VIAL SQ SCH (22:36)
[2019-07-16] MEDS: SODIUM CHLORIDE 0.45% 1,000 ML IV SCH ×2 (01:07→22:11)
[2019-07-16] MEDS ORDERED: PIPERACILLIN/TAZOBACTAM 3.375 GM VIAL IVPB ONE ×3 (02:36→17:58)
[2019-07-16] MEDS ORDERED: DEXTROSE 5%-WATER - 50 ML IVPB ONE ×3 (02:36→17:58)
[2019-07-16] MEDS: PIPERACILLIN/TAZOB 3.375 GM 3.375 GM in DEXTROSE 5%-WATER - 50 ML IVPB SCH ×3 (02:49→19:02)
[2019-07-16] MEDS: HEPARIN NA (PORCINE) 5,000 UNITS/ML 1ML VIAL SQ SCH ×2 (10:21→22:01)
--- NOTE | 2019-07-16 10:58 | PN ---
Progress Note, Physician - Current Medication List Current Medications: Active Medications Acetaminophen (Tylenol -) 650 mg PO Q6H PRN PRN Reason: FEVER Last Admin: 07/15/19 22:36 Dose: 650 mg Heparin Sodium (Porcine) (Heparin -) 5,000 unit SQ BID [facility] Last Admin: 07/16/19 10:21 Dose: 5,000 unit Sodium Chloride (1/2 Normal Saline) 1,000 mls @ 75 mls/hr IV [facility] Last Admin: 07/16/19 01:07 Dose: Not Given Piperacillin Sod/Tazobactam (Sod 3.375 gm/ Dextrose) 50 mls @ 100 mls/hr IVPB Q8H-IV [facility]; Protocol Last Admin: 07/16/19 10:21 Dose: 100 mls/hr - Objective Vital Signs: Vital Signs Temperature 99.1 F 07/16/19 09:53 Pulse Rate 114 H 07/16/19 09:53 Respiratory Rate 20 07/16/19 09:53 Blood Pressure 111/50 L 07/16/19 09:53 O2 Sat by Pulse Oximetry (%) 97 07/15/19 21:00 Constitutional: Yes: No Distress HENT: Yes: Atraumatic Neck: Yes: Supple Cardiovascular: Yes: Regular Rate and Rhythm Respiratory: Yes: CTA Bilaterally Gastrointestinal: Yes: Normal Bowel Sounds Extremities: Yes: Other (BUTTOCKS WOUND IMPROVING) Neurological: Yes: Alert Labs: CBC, BMP 07/14/19 15:20 07/11/19 07:00 Problem List - Problems (1) Decubitus ulcer Assessment/Plan: iv abx wound care Code(s): L89.90 - PRESSURE ULCER OF UNSPECIFIED SITE, UNSPECIFIED STAGE (2) Dementia Code(s): F03.90 - UNSPECIFIED DEMENTIA WITHOUT BEHAVIORAL DISTURBANCE (3) Wound infection Code(s): T14.8XXA - OTHER INJURY OF UNSPECIFIED BODY REGION, INITIAL ENCOUNTER; L08.9 - LOCAL INFECTION OF THE SKIN AND SUBCUTANEOUS TISSUE, UNSP
--- NOTE | 2019-07-16 11:59 | PN ---
Progress Note, Physician History of Present Illness: still spiking fevers according to daughter doing well eating well cough - Current Medication List Current Medications: Active Medications Acetaminophen (Tylenol -) 650 mg PO Q6H PRN PRN Reason: FEVER Last Admin: 07/15/19 22:36 Dose: 650 mg Heparin Sodium (Porcine) (Heparin -) 5,000 unit SQ BID [facility] Last Admin: 07/16/19 10:21 Dose: 5,000 unit Sodium Chloride (1/2 Normal Saline) 1,000 mls @ 75 mls/hr IV ASDIR [facility] Last Admin: 07/16/19 01:07 Dose: Not Given Piperacillin Sod/Tazobactam (Sod 3.375 gm/ Dextrose) 50 mls @ 100 mls/hr IVPB Q8H-IV [facility]; Protocol Last Admin: 07/16/19 10:21 Dose: 100 mls/hr - Objective Vital Signs: Vital Signs Temperature 99.1 F 07/16/19 09:53 Pulse Rate 114 H 07/16/19 09:53 Respiratory Rate 07/16/19 09:53 Blood Pressure 111/50 L 07/16/19 09:53 O2 Sat by Pulse Oximetry (%) 97 07/15/19 21:00 Constitutional: Yes: No Distress, Calm Cardiovascular: Yes: S1, S2 Respiratory: Yes: Regular, CTA Bilaterally Gastrointestinal: Yes: Normal Bowel Sounds, Soft Musculoskeletal: Yes: WNL Extremities: Yes: WNL Neurological: Yes: Alert, Other Labs: CBC, BMP 07/14/19 15:20 07/11/19 07:00 Assessment/Plan Problem List - Problems (1) Decubitus ulcer Code(s): L89.90 - PRESSURE ULCER OF UNSPECIFIED SITE, UNSPECIFIED STAGE (2) Dementia Code(s): F03.90 - UNSPECIFIED DEMENTIA WITHOUT BEHAVIORAL DISTURBANCE (3) Wound infection Code(s): T14.8XXA - OTHER INJURY OF UNSPECIFIED BODY REGION, INITIAL ENCOUNTER; L08.9 - LOCAL INFECTION OF THE SKIN AND SUBCUTANEOUS TISSUE, UNSP fever plan wound looks good spiked fever will see what the wbc shows tomorrow if normal will stop abx and monitor
[2019-07-16] MEDS: ACETAMINOPHEN 325 MG TABLET (FP) PO PRN (17:02)
[2019-07-17] MEDS ORDERED: DEXTROSE 5%-WATER - 50 ML IVPB ONE ×2 (01:39→09:16)
[2019-07-17] MEDS ORDERED: PIPERACILLIN/TAZOBACTAM 3.375 GM VIAL IVPB ONE ×2 (01:39→09:16)
[2019-07-17] MEDS: SODIUM CHLORIDE 0.45% 1,000 ML IV SCH (01:51)
[2019-07-17] MEDS: PIPERACILLIN/TAZOB 3.375 GM 3.375 GM in DEXTROSE 5%-WATER - 50 ML IVPB SCH ×2 (01:51→09:50)
[2019-07-17] MEDS ORDERED: PT OWN MED DRAWER 7, Y5N ONE ×2 (07:48→09:15)
[2019-07-17] MEDS: HEPARIN NA (PORCINE) 5,000 UNITS/ML 1ML VIAL SQ SCH ×2 (09:49→21:42)
[2019-07-17] MEDS: ACETAMINOPHEN 325 MG TABLET (FP) PO PRN ×2 (09:49→18:09)
[2019-07-17 09:53] LABS: HEMATOCRIT 28.9 % (32.4-45.2); HEMOGLOBIN 9.6 GM/dL (10.7-15.3); MCH 33.7 pg (25.7-33.7); MCHC 33.2 g/dl (32.0-36.0); MEAN CELL VOLUME 101.4 fl (80-96); MEAN PLT VOLUME 8.7 fl (7.5-11.1); PLATELET COUNT 152 K/MM3 (134-434); RBC 2.85 M/mm3 (3.60-5.2); RDW 16.3 % (11.6-15.6); WHITE BLOOD COUNT 6.2 K/mm3 (4.0-10.0)
[2019-07-17 10:17] LABS: BLOOD UREA NITROGEN 9.7 mg/dL (7-18); CALCIUM 7.6 mg/dL (8.5-10.1); CREATININE 0.6 mg/dL (0.55-1.3); POTASSIUM 4.1 mmol/L (3.5-5.1)
--- NOTE | 2019-07-17 11:21 | PN ---
Progress Note, Physician - Current Medication List Current Medications: Active Medications Acetaminophen (Tylenol -) 650 mg PO Q6H PRN PRN Reason: FEVER Last Admin: 07/17/19 09:49 Dose: 650 mg Heparin Sodium (Porcine) (Heparin -) 5,000 unit SQ BID [facility] Last Admin: 07/17/19 09:49 Dose: 5,000 unit Sodium Chloride (1/2 Normal Saline) 1,000 mls @ 75 mls/hr IV ASDIR [facility] Last Admin: 07/17/19 01:51 Dose: Not Given Piperacillin Sod/Tazobactam (Sod 3.375 gm/ Dextrose) 50 mls @ 100 mls/hr IVPB Q8H-IV [facility]; Protocol Last Admin: 07/17/19 09:50 Dose: 100 mls/hr - Objective Vital Signs: Vital Signs Temperature 98.7 F 07/17/19 06:00 Pulse Rate 109 H 07/17/19 06:00 Respiratory Rate 07/17/19 06:00 Blood Pressure 103/63 07/17/19 06:00 O2 Sat by Pulse Oximetry (%) 97 07/16/19 21:00 Constitutional: Yes: No Distress HENT: Yes: Atraumatic Neck: Yes: Supple Cardiovascular: Yes: Regular Rate and Rhythm Respiratory: Yes: CTA Bilaterally Extremities: Yes: WNL Neurological: Yes: Alert Labs: CBC, BMP 07/17/19 08:17 07/17/19 08:17 Problem List - Problems (1) Decubitus ulcer Assessment/Plan: OFF OF ABX DRUG FEVER PER ID wound care Code(s): L89.90 - PRESSURE ULCER OF UNSPECIFIED SITE, UNSPECIFIED STAGE (2) Dementia Code(s): F03.90 - UNSPECIFIED DEMENTIA WITHOUT BEHAVIORAL DISTURBANCE (3) Wound infection Code(s): T14.8XXA - OTHER INJURY OF UNSPECIFIED BODY REGION, INITIAL ENCOUNTER; L08.9 - LOCAL INFECTION OF THE SKIN AND SUBCUTANEOUS TISSUE, UNSP
--- NOTE | 2019-07-17 11:59 | PN ---
Progress Note, Physician History of Present Illness: still continues to spike fever otherwise comfortable daughter in the room - Current Medication List Current Medications: Active Medications Acetaminophen (Tylenol -) 650 mg PO Q6H PRN PRN Reason: FEVER Last Admin: 07/17/19 09:49 Dose: 650 mg Heparin Sodium (Porcine) (Heparin -) 5,000 unit SQ BID [facility] Last Admin: 07/17/19 09:49 Dose: 5,000 unit Sodium Chloride (1/2 Normal Saline) 1,000 mls @ 75 mls/hr IV ASDIR [facility] Last Admin: 07/17/19 01:51 Dose: Not Given Piperacillin Sod/Tazobactam (Sod 3.375 gm/ Dextrose) 50 mls @ 100 mls/hr IVPB Q8H-IV [facility]; Protocol Last Admin: 07/17/19 09:50 Dose: 100 mls/hr - Objective Vital Signs: Vital Signs Temperature 99.8 F H 07/17/19 11:31 Pulse Rate 109 H 07/17/19 09:30 Respiratory Rate 18 07/17/19 09:30 Blood Pressure 111/59 L 07/17/19 09:30 O2 Sat by Pulse Oximetry (%) 97 07/17/19 09:00 Constitutional: Yes: No Distress, Calm Cardiovascular: Yes: S1, S2 Respiratory: Yes: Regular, CTA Bilaterally Gastrointestinal: Yes: Normal Bowel Sounds, Soft Musculoskeletal: Yes: WNL Neurological: Yes: Alert Labs: CBC, BMP 07/17/19 08:17 07/17/19 08:17 Assessment/Plan Problem List - Problems (1) Decubitus ulcer Code(s): L89.90 - PRESSURE ULCER OF UNSPECIFIED SITE, UNSPECIFIED STAGE (2) Dementia Code(s): F03.90 - UNSPECIFIED DEMENTIA WITHOUT BEHAVIORAL DISTURBANCE (3) Wound infection Code(s): T14.8XXA - OTHER INJURY OF UNSPECIFIED BODY REGION, INITIAL ENCOUNTER; L08.9 - LOCAL INFECTION OF THE SKIN AND SUBCUTANEOUS TISSUE, UNSP fever plan wound looks good spiked fever will stop abx rest as per the team
[2019-07-18] MEDS: SODIUM CHLORIDE 0.45% 1,000 ML IV SCH (00:01)
[2019-07-18] MEDS: ACETAMINOPHEN 325 MG TABLET (FP) PO PRN (01:16)
[2019-07-18] MEDS: HEPARIN NA (PORCINE) 5,000 UNITS/ML 1ML VIAL SQ SCH ×2 (10:45→23:27)
--- NOTE | 2019-07-18 12:24 | PN ---
Progress Note, Physician History of Present Illness: stable no new issues had a low grade temp - Current Medication List Current Medications: Active Medications Acetaminophen (Tylenol -) 650 mg PO Q6H PRN PRN Reason: FEVER Last Admin: 07/18/19 01:16 Dose: 650 mg Heparin Sodium (Porcine) (Heparin -) 5,000 unit SQ BID [facility] Last Admin: 07/18/19 10:45 Dose: 5,000 unit Sodium Chloride (1/2 Normal Saline) 1,000 mls @ 75 mls/hr IV ASDIR [facility] Last Admin: 07/18/19 00:01 Dose: 75 mls/hr - Objective Vital Signs: Vital Signs Temperature 99.5 F 07/18/19 10:00 Pulse Rate 116 H 07/18/19 10:00 Respiratory Rate 07/18/19 10:00 Blood Pressure 170/86 07/18/19 10:00 O2 Sat by Pulse Oximetry (%) 97 07/17/19 21:00 Constitutional: Yes: No Distress, Calm Cardiovascular: Yes: S1, S2 Respiratory: Yes: Regular, CTA Bilaterally Gastrointestinal: Yes: Normal Bowel Sounds, Soft Musculoskeletal: Yes: WNL Extremities: Yes: WNL Neurological: Yes: Alert, Other Psychiatric: Yes: Other Labs: CBC, BMP 07/17/19 08:17 07/17/19 08:17 Assessment/Plan Problem List - Problems (1) Decubitus ulcer Code(s): L89.90 - PRESSURE ULCER OF UNSPECIFIED SITE, UNSPECIFIED STAGE (2) Dementia Code(s): F03.90 - UNSPECIFIED DEMENTIA WITHOUT BEHAVIORAL DISTURBANCE (3) Wound infection Code(s): T14.8XXA - OTHER INJURY OF UNSPECIFIED BODY REGION, INITIAL ENCOUNTER; L08.9 - LOCAL INFECTION OF THE SKIN AND SUBCUTANEOUS TISSUE, UNSP fever plan wound looks good continue to monitor without abx
--- NOTE | 2019-07-18 16:27 | PN ---
Progress Note, Physician History of Present Illness: AFEBRILE - Current Medication List Current Medications: Active Medications Acetaminophen (Tylenol -) 650 mg PO Q6H PRN PRN Reason: FEVER Last Admin: 07/18/19 01:16 Dose: 650 mg Heparin Sodium (Porcine) (Heparin -) 5,000 unit SQ BID [facility] Last Admin: 07/18/19 10:45 Dose: 5,000 unit Sodium Chloride (1/2 Normal Saline) 1,000 mls @ 75 mls/hr IV ASDIR [facility] Last Admin: 07/18/19 00:01 Dose: 75 mls/hr - Objective Vital Signs: Vital Signs Temperature 99.5 F 07/18/19 15:54 Pulse Rate 118 H 07/18/19 15:54 Respiratory Rate 20 07/18/19 15:54 Blood Pressure 122/75 07/18/19 15:54 O2 Sat by Pulse Oximetry (%) 99 07/18/19 09:00 Constitutional: Yes: No Distress HENT: Yes: Atraumatic Neck: Yes: Supple Cardiovascular: Yes: Regular Rate and Rhythm Respiratory: Yes: CTA Bilaterally Gastrointestinal: Yes: Normal Bowel Sounds Extremities: Yes: WNL Neurological: Yes: Alert Labs: CBC, BMP 07/17/19 08:17 07/17/19 08:17 Problem List - Problems (1) Decubitus ulcer Assessment/Plan: OFF OF ABX DRUG FEVER PER ID wound care Code(s): L89.90 - PRESSURE ULCER OF UNSPECIFIED SITE, UNSPECIFIED STAGE (2) Dementia Code(s): F03.90 - UNSPECIFIED DEMENTIA WITHOUT BEHAVIORAL DISTURBANCE (3) Wound infection Code(s): T14.8XXA - OTHER INJURY OF UNSPECIFIED BODY REGION, INITIAL ENCOUNTER; L08.9 - LOCAL INFECTION OF THE SKIN AND SUBCUTANEOUS TISSUE, UNSP
[2019-07-19] MEDS: guaiFENesin/D-METHORPHAN HB 10 ML UNIT-DOSE CUPS PO PRN ×2 (02:41→16:04)
[2019-07-19] MEDS: SODIUM CHLORIDE 0.45% 1,000 ML IV SCH ×2 (02:45→05:54)
[2019-07-19] MEDS: ACETAMINOPHEN 325 MG TABLET (FP) PO PRN ×2 (05:45→16:04)
[2019-07-19] MEDS: HEPARIN NA (PORCINE) 5,000 UNITS/ML 1ML VIAL SQ SCH (11:00)
--- NOTE | 2019-07-19 11:49 | PN ---
Progress Note, Physician History of Present Illness: stable no new issues - Current Medication List Current Medications: Active Medications Acetaminophen (Tylenol -) 650 mg PO Q6H PRN PRN Reason: FEVER Last Admin: 07/19/19 05:45 Dose: 650 mg Guaifenesin (Robitussin Dm -) 5 ml PO Q6H PRN PRN Reason: COUGH Last Admin: 07/19/19 02:41 Dose: 5 ml Heparin Sodium (Porcine) (Heparin -) 5,000 unit SQ BID [facility] Last Admin: 07/19/19 11:00 Dose: 5,000 unit Sodium Chloride (1/2 Normal Saline) 1,000 mls @ 75 mls/hr IV ASDIR [facility] Last Admin: 07/19/19 05:54 Dose: 75 mls/hr - Objective Vital Signs: Vital Signs Temperature 98.2 F 07/19/19 11:10 Pulse Rate 109 H 07/19/19 11:10 Respiratory Rate 07/19/19 11:10 Blood Pressure 126/53 L 07/19/19 11:10 O2 Sat by Pulse Oximetry (%) 99 07/18/19 21:00 Constitutional: Yes: No Distress, Calm Cardiovascular: Yes: S1, S2 Respiratory: Yes: Regular, CTA Bilaterally Gastrointestinal: Yes: Normal Bowel Sounds, Soft Musculoskeletal: Yes: WNL Extremities: Yes: WNL Neurological: Yes: Alert Labs: CBC, BMP 07/17/19 08:17 07/17/19 08:17 Assessment/Plan Problem List - Problems (1) Decubitus ulcer Code(s): L89.90 - PRESSURE ULCER OF UNSPECIFIED SITE, UNSPECIFIED STAGE (2) Dementia Code(s): F03.90 - UNSPECIFIED DEMENTIA WITHOUT BEHAVIORAL DISTURBANCE (3) Wound infection Code(s): T14.8XXA - OTHER INJURY OF UNSPECIFIED BODY REGION, INITIAL ENCOUNTER; L08.9 - LOCAL INFECTION OF THE SKIN AND SUBCUTANEOUS TISSUE, UNSP fever plan continue current mgmt nutrition
--- NOTE | 2019-07-19 16:54 | DS ---
Physical Examination Vital Signs: Vital Signs Temperature 101.2 F H 07/19/19 14:00 Pulse Rate 97 H 07/19/19 14:00 Respiratory Rate 07/19/19 14:00 Blood Pressure 119/77 07/19/19 14:00 O2 Sat by Pulse Oximetry (%) 99 07/18/19 21:00 Constitutional: Yes: No Distress HENT: Yes: Atraumatic Neck: Yes: Supple Cardiovascular: Yes: Regular Rate and Rhythm Respiratory: Yes: CTA Bilaterally Gastrointestinal: Yes: Normal Bowel Sounds Extremities: Yes: Other (buttock wounds) Labs: CBC, BMP 07/17/19 08:17 07/17/19 08:17 Discharge Summary Problems reviewed: Yes Reason For Visit: LOCAL INFECTION OF WOUND Current Active Problems Decubitus ulcer (Acute) Dementia (Acute) Wound infection (Acute) Condition: Fair - Instructions Referrals: Clinton Salamanca MD [Primary Care Provider] - Disposition: HOME - Home Medications Comprehensive Discharge Medication List: Ambulatory Orders Alendronate Sodium [Fosamax] 1 tab PO DAILY 07/07/19 Ammonium Lactate [Ignacia-Hydrolac] 1 applic TD BID 07/08/19
[2019-07-19 18:34] VITALS: BP 132/53; PULSE 98; TEMP 99
== END 2019-07-19 18:41 | disposition home health service (06) | DRG 871 ==
LOC: JER 14:40 → SUPCPDRO 14:40 → JERBED 17:52 → J5S 07-08 16:09
PROVIDERS: ADMIT Internal Medicine; ATTEND Internal Medicine
DX: A41.9 Sepsis, unspecified organism (principal); L89.154 Pressure ulcer of sacral region, stage 4; R53.2 Functional quadriplegia; N17.9 Acute kidney failure, unspecified; E87.3 Alkalosis; E87.2 Acidosis; F03.90 Unspecified dementia, unspecified severity, without behavioral disturbance, psychotic disturbance, mood disturbance, and anxiety; D72.829 Elevated white blood cell count, unspecified
CPT/HCPCS: 36415; 71045-TC-FY; 72192-TC; 80048; 80053; 81003; 82803; 82962; 83605; 85025; 85027; 87040; 87070; 87077; 87086; 87186; 87205; 87804; 93005; 93010; 99285-25; G0463-25; J0131; J1644

== ENCOUNTER 2019-07-23 13:55 | Inpatient (IN) | payer MEDICARE, OTHER ==
[2019-07-23] MEDS ORDERED: SODIUM CHLORIDE 2,422 ML IV ONE (14:29)
[2019-07-23] MEDS ORDERED: ACETAMINOPHEN 1000 MG/100 ML VIAL (NON FORMULARY) IVPB ONE (15:00)
[2019-07-23] MEDS ORDERED: ACETAMINOPHEN INJECTION 100 ML IVPB ONE (15:55)
[2019-07-23] MEDS ORDERED: PIPERACILLIN/TAZOB 4.5 GM 4.5 GM in DEXTROSE 5%-WATER 100 ML IVPB ONE (16:13)
[2019-07-23] MEDS ORDERED: VANCOMYCIN 1,500 MG in DEXTROSE 5%-WATER - 250 ML IVPB ONE (16:13)
--- NOTE | 2019-07-23 16:33 | PDOC ---
Documentation entered by Luis Hamilton SCRIBE, acting as scribe for Sonal Amaral MD. Sonal Amaral MD: This documentation has been prepared by the Alfonso moreira Xhesika, SCRIBE, under my direction and personally reviewed by me in its entirety. I confirm that the documentation accurately reflects all work, treatment, procedures, and medical decision making performed by me. History of Present Illness - General Chief Complaint: SIRS, Suspected/Possible Stated Complaint: FEVER Time Seen by Provider: 07/23/19 14:29 History Source: EMS, Family Exam Limitations: Dementia - History of Present Illness Initial Comments: 07/23/19 15:02 HPI The patient is a 69 year old female with a significant medical history of severe dementia, sacral decubitus ulcer and osteoporosis, who presents to the ED with fever 101F today, with worsening sacral wound/decub ulcer. Pt is severely demented and nonverbal at baseline, but daughter at bedside providing history. Daughter states the patient was seen and admitted here at [facility] 2019 for sacrum wound infection and care, dc'd earlier this week, was started on IV abx (finished course) and d/c home. Daughter notes last night the aide noticed the patients mattress deflated and the patient had to be moved into a wheelchair and another uncomfortable mattress and may have been lying on hard/ metal surface for unknown amount of time. Daughter notes in between the moving, the sacral wound opened with bloody drainage from the wound. Daughter also notes the patient has been having 5 days of productive cough with phlegm which developed while she was hospitalized, flu swab negative at the time. Daughter notes they called pts PCP, [place] [facility] [place] and were advised to come to the ED for evaluation. Allergies: NKDA Social history: Lives at home with daughter with 24hr home health aide. Meds: as documented in EMR PMD: Dr. Pak, [facility] [place] [facility] [place] of systems Unable to obtain secondary to severe dementia Physical exam General: malaised appearing, demented, nonverbal at baseline HEENT: NCAT, PERRL, EOMI, clear conjunctiva, anicteric, clear oropharynx, no oral lesions.+ dry mucus membranes, Neck: neck supple, FROM Resp: CTAB, normal and even respirations, no respiratory distress CVS: +tachycardic, no murmurs, 2+ peripheral pulses throughout, no peripheral edema Abdomen: soft, NTND, no rebound or guarding. No CVAT. Back: nontender, normal inspection and ROM MSK: no edema, VILLAFANA x4, ROM intact. No clubbing or cyanosis. normal bulk and tone. Extremities: no calf tenderness Neuro: demented, nonverbal, contracted in all extremities. Psych: nonverbal, cooperative Skin: +stage IV sacral decubitus ulcer, malodorous, opened, tunneling present with soft tissue and bone/muscle tissue visualized very warm to palpation, normal color for ethnicity 07/23/19 17:22 07/24/19 14:34 Past History - Past Medical History Allergies/Adverse Reactions: Allergies Allergy/AdvReac Type Severity Reaction Status Date / Time No Known Allergies Allergy Verified 07/23/19 14:17 Home Medications: Ambulatory Orders Alendronate Sodium [Fosamax] 1 tab PO WEEKLY 07/07/19 Ammonium Lactate [Ignacia-Hydrolac] 1 applic TD BID 07/08/19 COPD: No Dementia: Yes (Severe) - Surgical History Orthopedic Surgery: Yes (Left tibia repair w/ graciela) - Immunization History Immunization Up to Date: No - Psycho Social/Smoking Cessation Hx Smoking History: Never smoked Have you smoked in the past 12 months: No Information on smoking cessation initiated: No Hx Alcohol Use: No Drug/Substance Use Hx: No Substance Use Type: None Hx Substance Use Treatment: No Review of Systems - Review of Systems Able to Perform ROS?: No (Dementia) *Physical Exam - Vital Signs Last Vital Signs Temp Pulse Resp BP Pulse Ox 99.8 F H 112 H 18 110/70 100 07/23/19 14:00 07/23/19 14:00 07/23/19 14:00 07/23/19 14:00 07/23/19 14:00 Heart Score/ECG Review #1 ECG reviewed & interpreted by me at: 17:15 General ECG Interpretation: Sinus Rhythm, Normal Intervals Compared to previous ECG there are: Changes noted 07/23/19 17:21 sinus tachycardia at 112 bpm, nonspecific t wave abnormalities. ED Treatment Course - LABORATORY CBC & Chemistry Diagram: 07/24/19 08:33 07/24/19 08:33 - RADIOLOGY Radiology Studies Ordered: Category Date Time Status CHEST X-RAY PORTABLE* [RAD] Stat Radiology 07/23/19 14:29 Taken - Medications Given in the ED: ED Medications Discontinued Medications Generic Name Dose Route Start Last Admin Trade Name Ashley PRN Reason Stop Dose Admin Acetaminophen 1,000 mg 07/23/19 15:00 07/23/19 16:03 Ofirmev Injection - IVPB 07/23/19 15:01 1,000 mg ONCE ONE Administration Medical Decision Making - Medical Decision Making 07/23/19 16:28 Vital Signs Temp Pulse Resp BP Pulse Ox 99.8 F H 112 H 18 110/70 100 07/23/19 14:00 07/23/19 14:00 07/23/19 14:00 07/23/19 14:00 07/23/19 14:00 Vital signs notable for low-grade fever and tachycardia, rectal temp will be obtained, normotensive here no respiratory distress Patient has history of dementia, collaterals provided by family member at the bedside as well as aid Differential diagnosis includes severe sepsis, sacral wound, infection, bacteremia, pneumonia, UTI, anemia, electrolyte/metabolic derangements Sepsis work-up initiated, IV fluid hydration, Tylenol for the fever, Vancomycin and Zosyn for empiric coverage of her stage IV sacral ulcer which appears to be tunneling. This is acute on chronic in nature and will require extensive wound care. Cultures were obtained from the site. admitting to Dr Cheikh PATEL Cs with Dr Shaikh, prior care providers on last admission with recent discharge Discharge - Discharge Information Problems reviewed: Yes Clinical Impression/Diagnosis: Sacral decubitus ulcer, stage IV, Wound infection Dementia Qualifiers: Dementia type: unspecified type Dementia behavioral disturbance: without behavioral disturbance Qualified Code(s): F03.90 - Unspecified dementia without behavioral disturbance Sepsis Qualifiers: Sepsis type: sepsis due to unspecified organism Severe sepsis acute organ dysfunction type: unspecified Severe sepsis shock status: unspecified Condition: Guarded - Admission Yes - Follow up/Referral - Patient Discharge Instructions - Post Discharge Activity
[2019-07-23 16:59] LABS: BASO % 0.3 % (0-2.0); EOS % 0.7 % (0-4.5); HEMATOCRIT 29.9 % (32.4-45.2); HEMOGLOBIN 9.8 GM/dL (10.7-15.3); LYMPH % 21.6 % (8-40); MCH 33.5 pg (25.7-33.7); MCHC 32.8 g/dl (32.0-36.0); MEAN PLT VOLUME 8.4 fl (7.5-11.1); MONO % 7.1 % (3.8-10.2); NEUT % 70.3 % (42.8-82.8); PLATELET COUNT 276 K/MM3 (134-434); RBC 2.94 M/mm3 (3.60-5.2); RDW 16.7 % (11.6-15.6); WHITE BLOOD COUNT 10.8 K/mm3 (4.0-10.0)
[2019-07-23] MEDS ORDERED: VANCOMYCIN 1 GRAM (PRE-DOCKED) 2,000 MG/500 ML BAG IVPB ONE (17:09)
[2019-07-23] MEDS ORDERED: PIPERACILLIN/TAZOB 3.375 GM 3.375 GM/50 ML BAG IVPB ONE (17:10)
[2019-07-23] MEDS ORDERED: VANCOMYCIN 1,500 MG in DEXTROSE 5%-WATER - 500 ML IVPB ONE (17:15)
[2019-07-23] MEDS ORDERED: PIPERACILLIN/TAZOB 4.5 GM 4.5 GM/100 ML BAG IVPB ONE (17:18)
[2019-07-23 17:25] LABS: EPI CELLS 4.4 /HPF (0-5/HPF); HYALINE CASTS 5 /lpf (0-8); PH,URINE 6.5 (5.0-8.0); URINE APPEARANCE CLEAR; URINE BACTERIA 3.4 /hpf (NEGATIVE); URINE BILIRUBIN NEGATIVE (NEGATIVE); URINE COLOR YELLOW; URINE GLUCOSE (UA) NEGATIVE (NEGATIVE); URINE KETONE NEGATIVE (NEGATIVE); URINE LEUK ESTERASE TRACE (NEGATIVE); URINE NITRITE NEGATIVE (NEGATIVE); URINE PROTEIN 1+ (NEGATIVE); URINE RBC 9 /hpf (0-4); URINE WBC 6 /hpf (0-5)
[2019-07-23 17:29] LABS: ALBUMIN 1.7 g/dl (3.4-5.0); BILIRUBIN,TOTAL 0.6 mg/dL (0.2-1); BLOOD UREA NITROGEN 9.5 mg/dL (7-18); CALCIUM 8.2 mg/dL (8.5-10.1); CREATININE 0.5 mg/dL (0.55-1.3); POTASSIUM 4.7 mmol/L (3.5-5.1)
[2019-07-23 17:35] LABS: INR 1.09 (0.83-1.09); PROTHROMBIN TIME (PATIENT) 12.9 SEC (9.7-13.0)
[2019-07-23 17:38] LABS: ACTIVATED PTT 21.3 SECONDS (25.2-36.5)
--- NOTE | 2019-07-23 19:14 | HP ---
Admitting History and Physical - Primary Care Physician PCP: Clinton Salamanca - Admission History of Present Illness: 69 year old female with a significant medical history of severe dementia and osteoporosis, who presents to the ED with fever 101F today, with worsening sacral wound/decub ulcer. Pt is severely demented and nonverbal at baseline, but daughter at bedside providing history. Daughter states the patient was seen and admitted here at [facility] 07/07/2019 for sacrum wound care, dc'd earlier this week, was started on IV abx (finished course) and d/c home. Daughter notes last night the aide noticed the patients mattress deflated and the patient had to be moved into a wheelchair and another uncomfortable mattress and may have been lying on hard/metal surface for unknown amount of time. Daughter notes in between the moving, the sacral wound opened with minimal blood drainage from the wound. Daughter notes the patient has been having 5 days of productive cough with phlegm. Daughter notes they called pts PCP, Dr. Pak ( located at [facility] [place]) and were advised to come to the ED for evaluation. 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 - Smoking History Smoking history: Never smoked Have you smoked in the past 12 months: No - Alcohol/Substance Use Hx Alcohol Use: No Home Medications - Allergies Allergies/Adverse Reactions: Allergies Allergy/AdvReac Type Severity Reaction Status Date / Time No Known Allergies Allergy Verified 07/23/19 14:17 - Home Medications Home Medications: Ambulatory Orders Alendronate Sodium [Fosamax] 1 tab PO WEEKLY 07/07/19 Ammonium Lactate [Ignacia-Hydrolac] 1 applic TD BID 07/08/19 Physical Examination Vital Signs: Vital Signs Temperature 99.8 F H 07/23/19 18:30 Pulse Rate 111 H 07/23/19 18:30 Respiratory Rate 18 07/23/19 18:30 Blood Pressure 107/54 L 07/23/19 18:30 O2 Sat by Pulse Oximetry (%) 97 07/23/19 17:25 Constitutional: Yes: No Distress HENT: Yes: Atraumatic Neck: Yes: Supple Cardiovascular: Yes: Regular Rate and Rhythm Respiratory: Yes: CTA Bilaterally Gastrointestinal: Yes: Normal Bowel Sounds Extremities: Yes: Other (buttocks decub) Neurological: Yes: Alert Labs: CBC, BMP 07/23/19 15:15 07/23/19 15:15 Problem List - Problems (1) Dementia Code(s): F03.90 - UNSPECIFIED DEMENTIA WITHOUT BEHAVIORAL DISTURBANCE Qualifiers: Dementia type: unspecified type Dementia behavioral disturbance: without behavioral disturbance Qualified Code(s): F03.90 - Unspecified dementia without behavioral disturbance (2) Sacral decubitus ulcer, stage IV Assessment/Plan: on iv abx wound care id consult surgery consult Code(s): L89.154 - PRESSURE ULCER OF SACRAL REGION, STAGE 4 (3) Sepsis Assessment/Plan: iv abx cxs sent id consult Code(s): A41.9 - SEPSIS, UNSPECIFIED ORGANISM Qualifiers: Sepsis type: sepsis due to unspecified organism Severe sepsis acute organ dysfunction type: unspecified Severe sepsis shock status: unspecified (4) Wound infection Code(s): T14.8XXA - OTHER INJURY OF UNSPECIFIED BODY REGION, INITIAL ENCOUNTER; L08.9 - LOCAL INFECTION OF THE SKIN AND SUBCUTANEOUS TISSUE, UNSP Assessment/Plan Laboratory Tests 07/23/19 07/23/19 07/23/19 15:15 15:15 15:15 WBC 10.8 H RBC 2.94 L Hgb 9.8 L Hct 29.9 L MCV 102.0 H MCH 33.5 MCHC 32.8 RDW 16.7 H Plt Count 276 D MPV 8.4 Absolute Neuts (auto) 7.6 Neutrophils % 70.3 Lymphocytes % 21.6 Monocytes % 7.1 Eosinophils % 0.7 Basophils % 0.3 Nucleated RBC % 1 H PT with INR 12.90 INR 1.09 PTT (Actin FS) 21.3 L Sodium Potassium Chloride Carbon Dioxide Anion Gap BUN Creatinine Est GFR (CKD-EPI)AfAm Est GFR (CKD-EPI)NonAf Random Glucose Lactic Acid Calcium Total Bilirubin AST ALT Alkaline Phosphatase Troponin I < 0.02 Total Protein Albumin Urine Color Urine Appearance Urine pH Ur Specific [place] Urine Protein Urine Glucose (UA) Urine Ketones Urine Blood Urine Nitrite Urine Bilirubin Urine Urobilinogen Ur Leukocyte Esterase Urine WBC (Auto) Urine RBC (Auto) Urine Casts (Auto) U Epithel Cells (Auto) Urine Bacteria (Auto) 07/23/19 07/23/19 07/23/19 15:15 15:15 16:30 WBC RBC Hgb Hct MCV MCH MCHC RDW Plt Count MPV Absolute Neuts (auto) Neutrophils % Lymphocytes % Monocytes % Eosinophils % Basophils % Nucleated RBC % PT with INR INR PTT (Actin FS) Sodium 139 Potassium 4.7 Chloride 109 H Carbon Dioxide 24 Anion Gap 6 L BUN 9.5 Creatinine 0.5 L Est GFR (CKD-EPI)AfAm 112.86 Est GFR (CKD-EPI)NonAf 97.37 Random Glucose 118 H Lactic Acid 2.1 H Calcium 8.2 L Total Bilirubin 0.6 AST 50 H ALT 62 H Alkaline Phosphatase 89 Troponin I Total Protein 7.0 Albumin 1.7 L Urine Color Yellow Urine Appearance Clear Urine pH 6.5 D Ur Specific [place] 1.021 Urine Protein 1+ H Urine Glucose (UA) Negative Urine Ketones Negative Urine Blood Negative Urine Nitrite Negative Urine Bilirubin Negative Urine Urobilinogen 1.0 Ur Leukocyte Esterase Trace Urine WBC (Auto) 6 Urine RBC (Auto) 9 Urine Casts (Auto) 5 U Epithel Cells (Auto) 4.4 Urine Bacteria (Auto) 3.4 Active Medications Generic Name Dose Route Start Last Admin Trade Name Freq PRN Reason Stop Dose Admin Heparin Sodium (Porcine) 5,000 unit 07/23/19 22:00 Heparin - SQ BID [facility] Active Medications Generic Name Dose Route Start Last Admin Trade Name Freq PRN Reason Stop Dose Admin Acetaminophen 650 mg 07/26/19 16:49 Tylenol - PO Q6H PRN FEVER Heparin Sodium (Porcine) 5,000 unit 07/26/19 22:00 Heparin - SQ BID [facility] Vancomycin HCl 1,000 mg in 250 mls @ 166.667 mls/hr 07/27/19 01:00 Vancomycin (Pre-Docked) IVPB 0100,1300 [facility] Protocol Piperacillin Sod/Tazobactam 100 mls @ 200 mls/hr 07/26/19 18:00 Sod 4.5 gm/ Dextrose IVPB Q8H-IV [facility] Protocol
[2019-07-23] MEDS ORDERED: ACETAMINOPHEN 1000 MG/100 ML VIAL (NON FORMULARY) IVPB PRN (19:15)
[2019-07-23] MEDS: HEPARIN NA (PORCINE) 5,000 UNITS/ML 1ML VIAL SQ SCH (23:54)
[2019-07-24 09:18] LABS: BASO % 0.2 % (0-2.0); EOS % 1.3 % (0-4.5); HEMATOCRIT 25.8 % (32.4-45.2); HEMOGLOBIN 8.8 GM/dL (10.7-15.3); LYMPH % 25.1 % (8-40); MCH 33.5 pg (25.7-33.7); MEAN CELL VOLUME 98.5 fl (80-96); MEAN PLT VOLUME 7.6 fl (7.5-11.1); MONO % 8.2 % (3.8-10.2); NEUT % 65.2 % (42.8-82.8); PLATELET COUNT 255 K/MM3 (134-434); RBC 2.62 M/mm3 (3.60-5.2); RDW 16.1 % (11.6-15.6); WHITE BLOOD COUNT 8.6 K/mm3 (4.0-10.0)
[2019-07-24 09:43] LABS: ALBUMIN 1.5 g/dl (3.4-5.0); BILIRUBIN,TOTAL 0.5 mg/dL (0.2-1); CALCIUM 7.7 mg/dL (8.5-10.1); CREATININE 0.5 mg/dL (0.55-1.3)
[2019-07-24] MEDS: HEPARIN NA (PORCINE) 5,000 UNITS/ML 1ML VIAL SQ SCH ×2 (11:00→23:18)
--- NOTE | 2019-07-24 12:54 | PN ---
Progress Note, Physician - Current Medication List Current Medications: Active Medications Acetaminophen (Ofirmev Injection -) 1,000 mg IVPB Q6H PRN PRN Reason: FEVER Stop: 07/24/19 19:15 Heparin Sodium (Porcine) (Heparin -) 5,000 unit SQ BID [facility] Last Admin: 07/24/19 11:00 Dose: 5,000 unit - Objective Vital Signs: Vital Signs Temperature 99.6 F 07/24/19 11:00 Pulse Rate 120 H 07/24/19 11:00 Respiratory Rate 18 07/24/19 11:00 Blood Pressure 117/82 07/24/19 11:00 O2 Sat by Pulse Oximetry (%) 97 07/23/19 21:00 Labs: CBC, BMP 07/24/19 08:33 07/24/19 08:33 INR, PTT INR 1.09 (0.83-1.09) 07/23/19 15:15 Problem List - Problems (1) Dementia Code(s): F03.90 - UNSPECIFIED DEMENTIA WITHOUT BEHAVIORAL DISTURBANCE Qualifiers: Qualified Code(s): F03.90 - Unspecified dementia without behavioral disturbance (2) Sacral decubitus ulcer, stage IV Code(s): L89.154 - PRESSURE ULCER OF SACRAL REGION, STAGE 4 (3) Sepsis Code(s): A41.9 - SEPSIS, UNSPECIFIED ORGANISM Qualifiers: Qualified Code(s): A41.9 - Sepsis, unspecified organism; R65.20 - Severe sepsis without septic shock (4) Wound infection Code(s): T14.8XXA - OTHER INJURY OF UNSPECIFIED BODY REGION, INITIAL ENCOUNTER; L08.9 - LOCAL INFECTION OF THE SKIN AND SUBCUTANEOUS TISSUE, UNSP
--- NOTE | 2019-07-24 12:59 | CON.ID ---
Consult - History of Present Illness History of Present Illness: 69 y.o. female with PMH of large Sacral ST IV DU, severe dementia, osteoporosis presented to the ER for fever and drainage from sacral DU and Lt buttock eschar. Pt was hospitalized on 07/07/19 and discharged 5 days ago after a course of antibiotics. Wound cultures +proteus/coag neg staph. Pelvic CT 2 wks ago did not show OM. Daughter states that at home noticed that the air mattress was deflated. In the ER, pt had a temp of 99.8 and was tachycardic, elevated lactic acid level, and was started on broad spectrum antibiotics. As per daughter pt also had a nonspecific cough at home but no respiratory distress noted. Currently remains without distress and daughter is at bedside. Tmax 100.1F last night and remains tachycardic. Large Sacral DU and Lt ischial eschar with drainage noted. 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 Additional Medical History: ST IV Sacral DU - Alcohol/Substance Use Hx Alcohol Use: No - Smoking History Smoking history: Never smoked Have you smoked in the past 12 months: No - Social History Usual Living Arrangement: With Child ADL: Support Services History of Recent Travel: No Home Medications - Allergies Allergies/Adverse Reactions: Allergies Allergy/AdvReac Type Severity Reaction Status Date / Time No Known Allergies Allergy Verified 07/23/19 14:17 - Home Medications Home Medications: Ambulatory Orders Alendronate Sodium [Fosamax] 1 tab PO WEEKLY 07/07/19 Ammonium Lactate [Ignacia-Hydrolac] 1 applic TD BID 07/08/19 Review of Systems Unable to obtain ROS, reason: Pt demented - Review of Systems Integumentary: reports: Wound (ST IV Sacral DU) Physical Exam Vital Signs: Vital Signs Temperature 99.6 F 07/24/19 11:00 Pulse Rate 120 H 07/24/19 11:00 Respiratory Rate 18 07/24/19 11:00 Blood Pressure 117/82 07/24/19 11:00 O2 Sat by Pulse Oximetry (%) 97 07/23/19 21:00 Constitutional: Yes: No Distress. No: Well Nourished, Calm, Anxious, Ashen, Cachectic, Diaphoresis, Mild Distress, Moderate Distress, Severe Distress, Obese , Pallor, Poor Hygeine, Thin, Other Eyes: Yes: Conjunctiva Clear. No: WNL, EOM Intact, Cataracts, Diplopia, Occular Prosthesis, PERRL, Ptosis, Sclera Icterus, Tearing, Other HENT: Yes: Atraumatic. No: WNL, Normocephalic, Drooling, Epistaxis, Hoarseness , Nasal Congestion, Pharyngeal Erythema, Rhinnorhea, Thrush, Tonsillar Exudate, Other Neck: Yes: Supple. No: WNL, Trachea Midline, Decreased ROM, Lymphadenopathy, Rigid, Tenderness, Thyromegaly, Other Cardiovascular: Yes: Tachycardia Respiratory: Yes: CTA Bilaterally Gastrointestinal: Yes: Normal Bowel Sounds, Soft, Abdomen, Obese Renal/: Yes: WNL Musculoskeletal: Yes: WNL Extremities: Yes: WNL Integumentary: Yes: Pressure Ulcer (Sacral/Lt buttock) Wound/Incision: Yes: Draining, Other (large Sacral DU ST IV with eschar + malodorous drainage Lt buttock/ischial necrotic eschar with small open center + drainage) Labs: CBC, BMP 07/24/19 08:33 07/24/19 08:33 Laboratory Tests 07/23/19 07/23/19 07/23/19 04:00 15:15 15:15 WBC RBC Hgb Hct MCV MCH MCHC RDW Plt Count MPV Absolute Neuts (auto) Neutrophils % Lymphocytes % Monocytes % Eosinophils % Basophils % Nucleated RBC % PT with INR 12.90 INR 1.09 PTT (Actin FS) 21.3 L Sodium Potassium Chloride Carbon Dioxide Anion Gap BUN Creatinine Est GFR (CKD-EPI)AfAm Est GFR (CKD-EPI)NonAf Random Glucose Lactic Acid Calcium Total Bilirubin AST ALT Alkaline Phosphatase Troponin I < 0.02 Total Protein Albumin Urine Color Urine Appearance Urine pH Ur Specific [place] Urine Protein Urine Glucose (UA) Urine Ketones Urine Blood Urine Nitrite Urine Bilirubin Urine Urobilinogen Ur Leukocyte Esterase Urine WBC (Auto) Urine RBC (Auto) Urine Casts (Auto) U Epithel Cells (Auto) Urine Bacteria (Auto) Influenza A (Rapid) Negative Influenza B (Rapid) Negative 07/23/19 07/23/19 07/23/19 15:15 15:15 15:15 WBC 10.8 H RBC 2.94 L Hgb 9.8 L Hct 29.9 L MCV 102.0 H MCH 33.5 MCHC 32.8 RDW 16.7 H Plt Count 276 D MPV 8.4 Absolute Neuts (auto) 7.6 Neutrophils % 70.3 Lymphocytes % 21.6 Monocytes % 7.1 Eosinophils % 0.7 Basophils % 0.3 Nucleated RBC % 1 H PT with INR INR PTT (Actin FS) Sodium 139 Potassium 4.7 Chloride 109 H Carbon Dioxide 24 Anion Gap 6 L BUN 9.5 Creatinine 0.5 L Est GFR (CKD-EPI)AfAm 112.86 Est GFR (CKD-EPI)NonAf 97.37 Random Glucose 118 H Lactic Acid 2.1 H Calcium 8.2 L Total Bilirubin 0.6 AST 50 H ALT 62 H Alkaline Phosphatase 89 Troponin I Total Protein 7.0 Albumin 1.7 L Urine Color Urine Appearance Urine pH Ur Specific [place] Urine Protein Urine Glucose (UA) Urine Ketones Urine Blood Urine Nitrite Urine Bilirubin Urine Urobilinogen Ur Leukocyte Esterase Urine WBC (Auto) Urine RBC (Auto) Urine Casts (Auto) U Epithel Cells (Auto) Urine Bacteria (Auto) Influenza A (Rapid) Influenza B (Rapid) 07/23/19 07/23/19 07/24/19 16:30 20:31 08:33 WBC 8.6 RBC 2.62 L Hgb 8.8 L Hct 25.8 L MCV 98.5 H MCH 33.5 MCHC 34.0 RDW 16.1 H Plt Count 255 MPV 7.6 Absolute Neuts (auto) 5.6 Neutrophils % 65.2 Lymphocytes % 25.1 Monocytes % 8.2 Eosinophils % 1.3 D Basophils % 0.2 Nucleated RBC % 1 H PT with INR INR PTT (Actin FS) Sodium Potassium Chloride Carbon Dioxide Anion Gap BUN Creatinine Est GFR (CKD-EPI)AfAm Est GFR (CKD-EPI)NonAf Random Glucose Lactic Acid 1.7 Calcium Total Bilirubin AST ALT Alkaline Phosphatase Troponin I Total Protein Albumin Urine Color Yellow Urine Appearance Clear Urine pH 6.5 D Ur Specific [place] 1.021 Urine Protein 1+ H Urine Glucose (UA) Negative Urine Ketones Negative Urine Blood Negative Urine Nitrite Negative Urine Bilirubin Negative Urine Urobilinogen 1.0 Ur Leukocyte Esterase Trace Urine WBC (Auto) 6 Urine RBC (Auto) 9 Urine Casts (Auto) 5 U Epithel Cells (Auto) 4.4 Urine Bacteria (Auto) 3.4 Influenza A (Rapid) Influenza B (Rapid) 07/24/19 08:33 WBC RBC Hgb Hct MCV MCH MCHC RDW Plt Count MPV Absolute Neuts (auto) Neutrophils % Lymphocytes % Monocytes % Eosinophils % Basophils % Nucleated RBC % PT with INR INR PTT (Actin FS) Sodium 138 Potassium 4.0 Chloride 109 H Carbon Dioxide 22 Anion Gap 8 BUN 7.0 Creatinine 0.5 L Est GFR (CKD-EPI)AfAm 112.86 Est GFR (CKD-EPI)NonAf 97.37 Random Glucose 118 H Lactic Acid Calcium 7.7 L Total Bilirubin 0.5 AST 29 ALT 47 Alkaline Phosphatase 79 Troponin I Total Protein 6.0 L Albumin 1.5 L Urine Color Urine Appearance Urine pH Ur Specific [place] Urine Protein Urine Glucose (UA) Urine Ketones Urine Blood Urine Nitrite Urine Bilirubin Urine Urobilinogen Ur Leukocyte Esterase Urine WBC (Auto) Urine RBC (Auto) Urine Casts (Auto) U Epithel Cells (Auto) Urine Bacteria (Auto) Influenza A (Rapid) Influenza B (Rapid) Imaging - Results Chest X-ray: Report Reviewed (inadequate study, not all dickens visualized) Problem List - Problems (1) Dementia Code(s): F03.90 - UNSPECIFIED DEMENTIA WITHOUT BEHAVIORAL DISTURBANCE Qualifiers: Dementia type: unspecified type Dementia behavioral disturbance: without behavioral disturbance Qualified Code(s): F03.90 - Unspecified dementia without behavioral disturbance (2) Sacral decubitus ulcer, stage IV Code(s): L89.154 - PRESSURE ULCER OF SACRAL REGION, STAGE 4 (3) Wound infection Code(s): T14.8XXA - OTHER INJURY OF UNSPECIFIED BODY REGION, INITIAL ENCOUNTER; L08.9 - LOCAL INFECTION OF THE SKIN AND SUBCUTANEOUS TISSUE, UNSP (4) Fever Code(s): R50.9 - FEVER, UNSPECIFIED (5) Anemia Code(s): D64.9 - ANEMIA, UNSPECIFIED Assessment/Plan 69 y.o. female with PMH of large Sacral ST IV DU, severe dementia, osteoporosis presented to the ER for fever and drainage from sacral DU and Lt buttock eschar. Pt was hospitalized on 07/07/19 and discharged 5 days ago after a course of antibiotics for wound infection. Infected ST IV Sacral DU Lt buttock/ischial necrotic eschar/ infection Fever Lactic acidosis ? PNA Severe dementia Anemia Obesity Osteoporosis -- continue Zosyn/Vancomycin empirically for now -- monitor renal function, obtain Vancomycin trough prior to 4th dose -- follow results of blood CX and wound cultures -- monitor temps/vitals closely - with low grade fevers/currently remains tachycardic, repeat lactic acid is normal -- if pt noted to have cough/SOB suggest repeat CXR (currently without respiratory distress or cough) -- Recommend Surgical consult to evaluate wounds -- Consider repeat Pelvic CT (last one was negative for OM) -- continue wound care/frequent turning, wound care Case d/w daughter Will follow Thank you
[2019-07-24] MEDS ORDERED: PIPERACILLIN/TAZOBACTAM 4.5 GM VIAL IVPB ONE ×2 (14:14→17:03)
[2019-07-24] MEDS ORDERED: DEXTROSE 5%-WATER 100 ML IVPB ONE ×2 (14:14→17:04)
[2019-07-24] MEDS: VANCOMYCIN 1 GRAM (PRE-DOCKED) 1,000 MG/250 ML BAG IVPB SCH (14:27)
[2019-07-24] MEDS: PIPERACILLIN/TAZOB 4.5 GM 4.5 GM in DEXTROSE 5%-WATER 100 ML IVPB SCH ×2 (14:28→17:22)
--- NOTE | 2019-07-24 16:00 | EKG ---
Test Reason : Blood Pressure : / mmHG Vent. Rate : 112 BPM Atrial Rate : 112 BPM P-R Int : 128 ms QRS Dur : 084 ms QT Int : 348 ms P-R-T Axes : 073 -17 031 degrees QTc Int : 475 ms SINUS TACHYCARDIA LEFT ATRIAL ENLARGEMENT NONSPECIFIC ST ABNORMALITY ABNORMAL ECG Confirmed by MD REINALDO, JENNIFER ([id number]) on 07/24/2019 4:00:25 PM Referred By: Confirmed By:JENNIFER NAJERA MD
--- NOTE | 2019-07-24 20:04 | PN ---
Progress Note, Physician - Current Medication List Current Medications: Active Medications Heparin Sodium (Porcine) (Heparin -) 5,000 unit SQ BID CL[facility] Last Admin: 07/24/19 11:00 Dose: 5,000 unit Piperacillin Sod/Tazobactam (Sod 4.5 gm/ Dextrose) 100 mls @ 200 mls/hr IVPB Q8H-IV CL[facility]ITA; Protocol Last Admin: 07/24/19 17:22 Dose: 200 mls/hr Vancomycin HCl (Vancomycin (Pre-Docked)) 1,000 mg in 250 mls @ 166.667 mls/hr IVPB 0100,1300 CLARITA; Protocol Last Admin: 07/24/19 14:27 Dose: 166.667 mls/hr - Objective Vital Signs: Vital Signs Temperature 99.4 F 07/24/19 18:00 Pulse Rate 113 H 07/24/19 14:00 Respiratory Rate 18 07/24/19 14:00 Blood Pressure 119/59 L 07/24/19 14:00 O2 Sat by Pulse Oximetry (%) 97 07/24/19 09:00 Constitutional: Yes: No Distress HENT: Yes: Atraumatic Neck: Yes: Supple Cardiovascular: Yes: Regular Rate and Rhythm Respiratory: Yes: CTA Bilaterally Extremities: Yes: WNL Neurological: Yes: Alert, Oriented Labs: CBC, BMP 07/24/19 08:33 07/24/19 08:33 INR, PTT INR 1.09 (0.83-1.09) 07/23/19 15:15 Problem List - Problems (1) Dementia Code(s): F03.90 - UNSPECIFIED DEMENTIA WITHOUT BEHAVIORAL DISTURBANCE Qualifiers: Dementia type: unspecified type Dementia behavioral disturbance: without behavioral disturbance Qualified Code(s): F03.90 - Unspecified dementia without behavioral disturbance (2) Sacral decubitus ulcer, stage IV Assessment/Plan: on iv abx wound care Code(s): L89.154 - PRESSURE ULCER OF SACRAL REGION, STAGE 4 (3) Sepsis Assessment/Plan: iv abx cxs sent id consult Code(s): A41.9 - SEPSIS, UNSPECIFIED ORGANISM Qualifiers: Sepsis type: sepsis due to unspecified organism Severe sepsis acute organ dysfunction type: unspecified Severe sepsis shock status: unspecified (4) Wound infection Code(s): T14.8XXA - OTHER INJURY OF UNSPECIFIED BODY REGION, INITIAL ENCOUNTER; L08.9 - LOCAL INFECTION OF THE SKIN AND SUBCUTANEOUS TISSUE, UNSP
[2019-07-25] MEDS ORDERED: DEXTROSE 5%-WATER 100 ML IVPB ONE ×3 (01:17→17:26)
[2019-07-25] MEDS ORDERED: PIPERACILLIN/TAZOBACTAM 4.5 GM VIAL IVPB ONE ×3 (01:17→17:26)
[2019-07-25] MEDS: PIPERACILLIN/TAZOB 4.5 GM 4.5 GM in DEXTROSE 5%-WATER 100 ML IVPB SCH ×3 (01:24→20:56)
[2019-07-25] MEDS: VANCOMYCIN 1 GRAM (PRE-DOCKED) 1,000 MG/250 ML BAG IVPB SCH ×2 (01:55→13:53)
--- NOTE | 2019-07-25 08:55 | PN ---
Progress Note (short form) - Note Progress Note: Patient known from last admission Deterioration Nikolas decubitii, significant necrosis, full thickness, need Excisional debridement Will need Medical clearance, if medically stable can be done IV sedation /MAC for anaesthesia to monitor with minimal sedation Laboratory Tests 07/24/19 08:33 WBC 8.6 RBC 2.62 L Hgb 8.8 L Hct 25.8 L MCV 98.5 H RDW 16.1 H Nucleated RBC % 1 H Daughter at bedside discussed about the severity of the necrosis Poor prognosis .
[2019-07-25] MEDS: HEPARIN NA (PORCINE) 5,000 UNITS/ML 1ML VIAL SQ SCH ×2 (10:52→21:50)
--- NOTE | 2019-07-25 16:11 | PN ---
Progress Note, Physician - Current Medication List Current Medications: Active Medications Heparin Sodium (Porcine) (Heparin -) 5,000 unit SQ BID CLARITA Last Admin: 07/25/19 10:52 Dose: 5,000 unit Piperacillin Sod/Tazobactam (Sod 4.5 gm/ Dextrose) 100 mls @ 200 mls/hr IVPB Q8H-IV CL[facility]ITA; Protocol Last Admin: 07/25/19 10:52 Dose: 200 mls/hr Vancomycin HCl (Vancomycin (Pre-Docked)) 1,000 mg in 250 mls @ 166.667 mls/hr IVPB 0100,1300 CLARITA; Protocol Last Admin: 07/25/19 13:53 Dose: 166.667 mls/hr - Objective Vital Signs: Vital Signs Temperature 99.4 F 07/25/19 15:00 Pulse Rate 115 H 07/25/19 15:00 Respiratory Rate 07/25/19 15:00 Blood Pressure 93/54 L 07/25/19 15:00 O2 Sat by Pulse Oximetry (%) 100 07/24/19 21:00 Constitutional: Yes: No Distress HENT: Yes: Atraumatic Neck: Yes: Supple Cardiovascular: Yes: Regular Rate and Rhythm Respiratory: Yes: CTA Bilaterally Gastrointestinal: Yes: Normal Bowel Sounds Extremities: Yes: Other (buttocks decub/wound) Neurological: Yes: Alert Labs: CBC, BMP 07/24/19 08:33 07/24/19 08:33 INR, PTT INR 1.09 (0.83-1.09) 07/23/19 15:15 Problem List - Problems (1) Dementia Code(s): F03.90 - UNSPECIFIED DEMENTIA WITHOUT BEHAVIORAL DISTURBANCE Qualifiers: Dementia type: unspecified type Dementia behavioral disturbance: without behavioral disturbance Qualified Code(s): F03.90 - Unspecified dementia without behavioral disturbance (2) Sacral decubitus ulcer, stage IV Assessment/Plan: on iv abx wound care cardiac clearance for OR Code(s): L89.154 - PRESSURE ULCER OF SACRAL REGION, STAGE 4 (3) Sepsis Code(s): A41.9 - SEPSIS, UNSPECIFIED ORGANISM Qualifiers: Sepsis type: sepsis due to unspecified organism Severe sepsis acute organ dysfunction type: unspecified Severe sepsis shock status: unspecified (4) Wound infection Code(s): T14.8XXA - OTHER INJURY OF UNSPECIFIED BODY REGION, INITIAL ENCOUNTER; L08.9 - LOCAL INFECTION OF THE SKIN AND SUBCUTANEOUS TISSUE, UNSP
--- NOTE | 2019-07-25 16:36 | PN ---
Progress Note, Physician History of Present Illness: Pt alert, without distress. Tmax 100.1, currently 99.4F. - Current Medication List Current Medications: Active Medications Heparin Sodium (Porcine) (Heparin -) 5,000 unit SQ BID CL[facility]ITA Last Admin: 07/25/19 10:52 Dose: 5,000 unit Piperacillin Sod/Tazobactam (Sod 4.5 gm/ Dextrose) 100 mls @ 200 mls/hr IVPB Q8H-IV CL[facility]; Protocol Last Admin: 07/25/19 10:52 Dose: 200 mls/hr Vancomycin HCl (Vancomycin (Pre-Docked)) 1,000 mg in 250 mls @ 166.667 mls/hr IVPB 0100,1300 CLARITA; Protocol Last Admin: 07/25/19 13:53 Dose: 166.667 mls/hr - Objective Vital Signs: Vital Signs Temperature 99.4 F 07/25/19 15:00 Pulse Rate 115 H 07/25/19 15:00 Respiratory Rate 20 07/25/19 15:00 Blood Pressure 93/54 L 07/25/19 15:00 O2 Sat by Pulse Oximetry (%) 100 07/24/19 21:00 Constitutional: Yes: No Distress, Calm Cardiovascular: Yes: Tachycardia Respiratory: Yes: Regular Gastrointestinal: Yes: Normal Bowel Sounds, Soft, Abdomen, Obese Genitourinary: Yes: WNL Edema: LLE: Trace, RLE: Trace Integumentary: Yes: Pressure Ulcer (Sacral St IV DU extensive with malodorous drainage/slough, Lt ischial necrotic eschar with drainage from center.) Wound/Incision: Yes: Dressing Dry and Intact Neurological: Yes: Alert Labs: CBC, BMP 07/24/19 08:33 07/24/19 08:33 INR, PTT INR 1.09 (0.83-1.09) 07/23/19 15:15 Microbiology 07/23/19 15:15 Blood - Peripheral Venous Blood Culture - Preliminary NO GROWTH OBTAINED AFTER 48 HOURS, INCUBATION TO CONTINUE FOR 3 DAYS. 07/23/19 15:15 Blood - Peripheral Venous Blood Culture - Preliminary NO GROWTH OBTAINED AFTER 48 HOURS, INCUBATION TO CONTINUE FOR 3 DAYS. 07/24/19 13:05 Decubiti Gram Stain - Final 07/24/19 13:05 Decubiti Wound Culture - Preliminary Non Lactose Fermenting Gnb Non Lactose Fermenting Gnb#2 Lactose Fermenting Neg Bacilli Pending Organism Pending Organism#2 07/23/19 15:15 Ulcer Gram Stain - Final 07/23/19 15:15 Ulcer Wound Culture - Preliminary Non Lactose Fermenting Gnb Non Lactose Fermenting Gnb#2 Lactose Fermenting Neg Bacilli Pending Organism Pending Organism#2 07/23/19 16:30 Urine - Urine - Catheterized Urine Culture - Final NO GROWTH OBTAINED Problem List - Problems (1) Dementia Code(s): F03.90 - UNSPECIFIED DEMENTIA WITHOUT BEHAVIORAL DISTURBANCE Qualifiers: Qualified Code(s): F03.90 - Unspecified dementia without behavioral disturbance (2) Sacral decubitus ulcer, stage IV Code(s): L89.154 - PRESSURE ULCER OF SACRAL REGION, STAGE 4 (3) Wound infection Code(s): T14.8XXA - OTHER INJURY OF UNSPECIFIED BODY REGION, INITIAL ENCOUNTER; L08.9 - LOCAL INFECTION OF THE SKIN AND SUBCUTANEOUS TISSUE, UNSP (4) Fever Code(s): R50.9 - FEVER, UNSPECIFIED (5) Anemia Code(s): D64.9 - ANEMIA, UNSPECIFIED Assessment/Plan 69 y.o. female with PMH of large Sacral ST IV DU, severe dementia, osteoporosis presented to the ER for fever and drainage from sacral DU and Lt buttock eschar. Pt was hospitalized on 07/07/19 and discharged 5 days ago after a course of antibiotics for wound infection. Infected ST IV Sacral DU Lt buttock/ischial necrotic eschar/ infection Fever Lactic acidosis ? PNA Severe dementia Anemia Obesity Osteoporosis -- continue Zosyn/Vancomycin -- monitor renal function, obtain Vancomycin trough prior to 4th dose -- blood CX neg. 48Hr. Wound culture with multiple gram neg organisms - isolates pending -- with low grade fevers/remains tachycardic -- Recommend Surgical consult to evaluate wounds -- Consider repeat Pelvic CT (last one was negative for OM) -- continue wound care/frequent turning monitor vitals closely
--- NOTE | 2019-07-25 16:37 | CON.CARD ---
Consult Consult Specialty:: Cardiology for dr. Mariscal - History of Present Illness History of Present Illness: 69 year old female with a significant medical history of severe dementia and osteoporosis, who presents to the ED with fever 101F today, with worsening sacral wound/decub ulcer. Pt is severely demented and nonverbal at baseline, but daughter at bedside providing history. Daughter states the patient was seen and admitted here at [facility] 07/07/2019 for sacrum wound care, dc'd earlier this week, was started on IV abx (finished course) and d/c home. Daughter notes last night the aide noticed the patients mattress deflated and the patient had to be moved into a wheelchair and another uncomfortable mattress and may have been lying on hard/metal surface for unknown amount of time. Daughter notes in between the moving, the sacral wound opened with minimal blood drainage from the wound. Daughter notes the patient has been having 5 days of productive cough with phlegm. Daughter notes they called pts PCP, Dr. Pak ( located at [facility] [place] and were advised to come to the ED for evaluation. 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 Additional Medical History: ST IV Sacral DU - Alcohol/Substance Use Hx Alcohol Use: No - Smoking History Smoking history: Never smoked Have you smoked in the past 12 months: No - Social History Usual Living Arrangement: With Child ADL: Support Services History of Recent Travel: No Home Medications - Allergies Allergies/Adverse Reactions: Allergies Allergy/AdvReac Type Severity Reaction Status Date / Time No Known Allergies Allergy Verified 07/23/19 14:17 - Home Medications Home Medications: Ambulatory Orders Alendronate Sodium [Fosamax] 1 tab PO WEEKLY 07/07/19 Ammonium Lactate [Ignacia-Hydrolac] 1 applic TD BID 07/08/19 Review of Systems - Review of Systems Constitutional: reports: No Symptoms Eyes: reports: No Symptoms HENT: reports: No Symptoms Neck: reports: No Symptoms Cardiovascular: reports: No Symptoms Gastrointestinal: reports: No Symptoms Genitourinary: reports: No Symptoms Breasts: reports: No Symptoms Reported Musculoskeletal: reports: No Symptoms Integumentary: reports: No Symptoms Neurological: reports: No Symptoms Endocrine: reports: No Symptoms Hematology/Lymphatic: reports: No Symptoms Psychiatric: reports: No Symptoms Vital Signs: Vital Signs Temperature 99.4 F 07/25/19 15:00 Pulse Rate 115 H 07/25/19 15:00 Respiratory Rate 20 07/25/19 15:00 Blood Pressure 93/54 L 07/25/19 15:00 O2 Sat by Pulse Oximetry (%) 100 07/24/19 21:00 Constitutional: Yes: Well Nourished, No Distress, Calm Eyes: Yes: WNL, Conjunctiva Clear, EOM Intact HENT: Yes: WNL, Atraumatic, Normocephalic Neck: Yes: WNL, Supple, Trachea Midline Respiratory: Yes: WNL, Regular, CTA Bilaterally Gastrointestinal: Yes: WNL, Normal Bowel Sounds Renal/: Yes: WNL Cardiovascular: Yes: WNL, Regular Rate and Rhythm Heart Sounds: Yes: S1, S2 Musculoskeletal: Yes: WNL Extremities: Yes: WNL Integumentary: Yes: WNL Neurological: Yes: Oriented ...Motor Strength: WNL Psychiatric: Yes: WNL, Alert, Oriented - Other Data Labs, Other Data: CBC, BMP 07/24/19 08:33 07/24/19 08:33 INR, PTT INR 1.09 (0.83-1.09) 07/23/19 15:15 Imaging - Results Chest X-ray: Image Reviewed (CM aortic plaque) EKG: Image Reviewed (sinus tachycardia LAE rep abn motion artifacts) Problem List - Problems (1) Anemia Code(s): D64.9 - ANEMIA, UNSPECIFIED (2) Dementia Code(s): F03.90 - UNSPECIFIED DEMENTIA WITHOUT BEHAVIORAL DISTURBANCE Qualifiers: Dementia type: unspecified type Dementia behavioral disturbance: without behavioral disturbance Qualified Code(s): F03.90 - Unspecified dementia without behavioral disturbance (3) Fever Code(s): R50.9 - FEVER, UNSPECIFIED (4) Sacral decubitus ulcer, stage IV Code(s): L89.154 - PRESSURE ULCER OF SACRAL REGION, STAGE 4 (5) Sepsis Code(s): A41.9 - SEPSIS, UNSPECIFIED ORGANISM Qualifiers: Sepsis type: sepsis due to unspecified organism Severe sepsis acute organ dysfunction type: unspecified Severe sepsis shock status: unspecified (6) Wound infection Code(s): T14.8XXA - OTHER INJURY OF UNSPECIFIED BODY REGION, INITIAL ENCOUNTER; L08.9 - LOCAL INFECTION OF THE SKIN AND SUBCUTANEOUS TISSUE, UNSP (7) Decubitus ulcer Code(s): L89.90 - PRESSURE ULCER OF UNSPECIFIED SITE, UNSPECIFIED STAGE Assessment/Plan 69 year old female with a significant medical history of severe dementia and osteoporosis, being evaluate for preop clearance prior to sacral decubitus debridement. No h/o of heart diseases. Plan; Repeat EKG and obtain an ECHO prior to clearance. coverage for dr. Kelley
[2019-07-25] MEDS ORDERED: ACETAMINOPHEN 325 MG TABLET (FP) PO PRN (19:49)
[2019-07-26] MEDS: VANCOMYCIN 1 GRAM (PRE-DOCKED) 1,000 MG/250 ML BAG IVPB SCH ×2 (01:02→12:09)
[2019-07-26] MEDS ORDERED: PIPERACILLIN/TAZOBACTAM 4.5 GM VIAL IVPB ONE ×3 (02:41→18:16)
[2019-07-26] MEDS ORDERED: DEXTROSE 5%-WATER 100 ML IVPB ONE ×3 (02:42→18:16)
[2019-07-26] MEDS: PIPERACILLIN/TAZOB 4.5 GM 4.5 GM in DEXTROSE 5%-WATER 100 ML IVPB SCH ×3 (03:13→18:17)
--- NOTE | 2019-07-26 09:07 | ECHO ---
Name: HERMINIA CHARLES Exam:Adult Echocardiogram Study Date: 07/26/2019 07:42 AM Age: 69 yrs Reason For Study: clearance for OR Height: 67 in Weight: 185 lb BSA: 2.0 m2 MMode/2D Measurements & Calculations IVSd: 0.72 cm Ao root diam: 2.8 cm LVIDd: 4.8 cm LA dimension: 3.7 cm LVIDs: 3.2 cm ACS: 1.8 cm LVPWd: 0.82 cm IVSs: 1.2 cm LVPWs: 1.0 cm EDV(Teich): 107.4 ml ESV(Teich): 40.5 ml Doppler Measurements & Calculations MV E max andre: 66.1 cm/sec Ao V2 max: 183.5 cm/sec MV A max andre: 102.4 cm/sec Ao max P.5 mmHg MV E/A: 0.65 Ao V2 mean: 112.0 cm/sec Ao mean P.2 mmHg Ao V2 VTI: 31.2 cm MR max andre: 449.3 cm/sec TR max andre: 208.4 cm/sec MR max P.8 mmHg TR max P.6 mmHg Med Peak E' Andre: 7.8 cm/sec Med E/e': 8.5 Lat Peak E' Andre: 8.3 cm/sec Lat E/e': 7.9 Left Ventricle The left ventricular size, thickness and function are normal. The left ventricular ejection fraction is normal. Ejection Fraction = 60-65%. The transmitral spectral Doppler flow pattern is suggestive of im paired LV relaxation. The left ventricular wall motion is normal. Right Ventricle The right ventricle is grossly normal size. The right ventricular systolic function is normal. Atria Normal left and right atrial size and function. Mitral Valve The mitral valve leaflets appear normal. There is no evidence of stenosis, fluttering, or prolapse. T here is mild to moderate mitral annular calcification. There is trace mitral regurgitation. Tricuspid Valve The tricuspid valve is not well visualized, but is grossly normal. There is mild tricuspid regurgitat ion. Aortic Valve The aortic valve is normal in structure and function. Pulmonic Valve The pulmonic valve is not well visualized. Great Vessels The aortic root is normal size. Pericardium/Pleura There is no pericardial effusion. Interpretation Summary LV: Normal size and systolic function: EF 60-65%. Impaired relaxation RV: Normal Mitral annular calcification, trace mitral regurgitation Mild tricuspid regurgitation with normal RVSP. Jamil Craft 07/26/2019 09:06 AM
[2019-07-26] MEDS ORDERED: LIDOCAINE HCL 1% EPINEPHRINE 1:200,000 30 ML VIAL (PF) ONE (14:21)
[2019-07-26] MEDS ORDERED: BACITRACIN 50,000 UNITS VIAL NR ONE (14:54)
[2019-07-26] MEDS ORDERED: fentaNYL CITRATE 250 MCG/5 ML VIAL ONE (14:59)
--- NOTE | 2019-07-26 15:04 | PN ---
Progress Note, Physician Chief Complaint: Events noted Not in distress History of Present Illness: Patient was seen and examined. Chart was reviewed Denies chest pain, SOB or palpitations - Current Medication List Current Medications: Active Medications Acetaminophen (Tylenol -) 650 mg PO Q6H PRN PRN Reason: FEVER Last Admin: 07/25/19 20:15 Dose: 650 mg Heparin Sodium (Porcine) (Heparin -) 5,000 unit SQ BID CL[facility]ITA Last Admin: 07/25/19 21:50 Dose: 5,000 unit Piperacillin Sod/Tazobactam (Sod 4.5 gm/ Dextrose) 100 mls @ 200 mls/hr IVPB Q8H-IV CLARITA; Protocol Last Admin: 07/26/19 10:57 Dose: 200 mls/hr Vancomycin HCl (Vancomycin (Pre-Docked)) 1,000 mg in 250 mls @ 166.667 mls/hr IVPB 0100,1300 CLARITA; Protocol Last Admin: 07/26/19 12:09 Dose: 166.667 mls/hr - Objective Vital Signs: Vital Signs Temperature 99.9 F H 07/26/19 06:00 Pulse Rate 102 H 07/26/19 11:17 Respiratory Rate 18 07/26/19 11:17 Blood Pressure 108/51 L 07/26/19 11:17 O2 Sat by Pulse Oximetry (%) 97 07/26/19 09:00 Neck: Yes: Supple Cardiovascular: Yes: Regular Rate and Rhythm, S1, S2 Respiratory: Yes: Diminished Gastrointestinal: Yes: Normal Bowel Sounds, Soft. No: Tenderness Edema: No Labs: CBC, BMP 07/24/19 08:33 07/24/19 08:33 Problem List - Problems (1) Anemia Code(s): D64.9 - ANEMIA, UNSPECIFIED (2) Dementia Code(s): F03.90 - UNSPECIFIED DEMENTIA WITHOUT BEHAVIORAL DISTURBANCE Qualifiers: Dementia type: unspecified type Dementia behavioral disturbance: without behavioral disturbance Qualified Code(s): F03.90 - Unspecified dementia without behavioral disturbance (3) Fever Code(s): R50.9 - FEVER, UNSPECIFIED (4) Sacral decubitus ulcer, stage IV Code(s): L89.154 - PRESSURE ULCER OF SACRAL REGION, STAGE 4 (5) Sepsis Code(s): A41.9 - SEPSIS, UNSPECIFIED ORGANISM Qualifiers: Sepsis type: sepsis due to unspecified organism Severe sepsis acute organ dysfunction type: unspecified Severe sepsis shock status: unspecified (6) Wound infection Code(s): T14.8XXA - OTHER INJURY OF UNSPECIFIED BODY REGION, INITIAL ENCOUNTER; L08.9 - LOCAL INFECTION OF THE SKIN AND SUBCUTANEOUS TISSUE, UNSP Assessment/Plan 1. Sacral decuiti ulcer 2. Dementia 3, Osteoporosis PLAN: 1. No absolute contraindication for debridement of ulcer in view of absence of ischemic symptoms, decompensated congestive heart failure or malignant arrhythmias 2. Echocardiography reviewed 3. Antibiotics 4. DVT prophylaxis Trever Kelley MD
[2019-07-26] MEDS ORDERED: NEOSTIGMINE METHYLSULFATE 0.5 MG/ML - 10 ML MDV ONE (15:50)
[2019-07-26] MEDS ORDERED: ACETAMINOPHEN 325 MG TABLET (FP) PO PRN (16:49)
--- NOTE | 2019-07-26 17:05 | PN ---
Progress Note, Physician - Current Medication List Current Medications: Active Medications Acetaminophen (Tylenol -) 650 mg PO Q6H PRN PRN Reason: FEVER Heparin Sodium (Porcine) (Heparin -) 5,000 unit SQ BID CLARITA Vancomycin HCl (Vancomycin (Pre-Docked)) 1,000 mg in 250 mls @ 166.667 mls/hr IVPB 0100,1300 CL[facility]ITA; Protocol Piperacillin Sod/Tazobactam (Sod 4.5 gm/ Dextrose) 100 mls @ 200 mls/hr IVPB Q8H-IV CL[facility]ITA; Protocol - Objective Vital Signs: Vital Signs Temperature 97.4 F L 07/26/19 15:55 Pulse Rate 92 H 07/26/19 16:55 Respiratory Rate 20 07/26/19 16:55 Blood Pressure 106/66 07/26/19 16:55 O2 Sat by Pulse Oximetry (%) 100 07/26/19 16:55 Constitutional: Yes: No Distress HENT: Yes: Atraumatic Neck: Yes: Supple Cardiovascular: Yes: Regular Rate and Rhythm Respiratory: Yes: CTA Bilaterally Extremities: Yes: Other (decub on buttocks) Edema: No Neurological: Yes: Alert Labs: CBC, BMP 07/24/19 08:33 07/24/19 08:33 INR, PTT INR 1.09 (0.83-1.09) 07/23/19 15:15 Problem List - Problems (1) Dementia Code(s): F03.90 - UNSPECIFIED DEMENTIA WITHOUT BEHAVIORAL DISTURBANCE Qualifiers: Dementia type: unspecified type Dementia behavioral disturbance: without behavioral disturbance Qualified Code(s): F03.90 - Unspecified dementia without behavioral disturbance (2) Sacral decubitus ulcer, stage IV Assessment/Plan: on iv abx wound care for debridement in OR Code(s): L89.154 - PRESSURE ULCER OF SACRAL REGION, STAGE 4 (3) Sepsis Assessment/Plan: iv abx cxs sent id consult Code(s): A41.9 - SEPSIS, UNSPECIFIED ORGANISM Qualifiers: Sepsis type: sepsis due to unspecified organism Severe sepsis acute organ dysfunction type: unspecified Severe sepsis shock status: unspecified (4) Wound infection Code(s): T14.8XXA - OTHER INJURY OF UNSPECIFIED BODY REGION, INITIAL ENCOUNTER; L08.9 - LOCAL INFECTION OF THE SKIN AND SUBCUTANEOUS TISSUE, UNSP
--- NOTE | 2019-07-26 17:08 | PN ---
Progress Note, Physician History of Present Illness: stable going for debridement to or - Current Medication List Current Medications: Active Medications Acetaminophen (Tylenol -) 650 mg PO Q6H PRN PRN Reason: FEVER Heparin Sodium (Porcine) (Heparin -) 5,000 unit SQ BID CL[facility] Vancomycin HCl (Vancomycin (Pre-Docked)) 1,000 mg in 250 mls @ 166.667 mls/hr IVPB 0100,1300 CL[facility]ITA; Protocol Piperacillin Sod/Tazobactam (Sod 4.5 gm/ Dextrose) 100 mls @ 200 mls/hr IVPB Q8H-IV CL[facility]; Protocol - Objective Vital Signs: Vital Signs Temperature 97.4 F L 07/26/19 15:55 Pulse Rate 92 H 07/26/19 16:55 Respiratory Rate 20 07/26/19 16:55 Blood Pressure 106/66 07/26/19 16:55 O2 Sat by Pulse Oximetry (%) 100 07/26/19 16:55 Constitutional: Yes: No Distress, Calm Cardiovascular: Yes: S1, S2 Respiratory: Yes: Regular, CTA Bilaterally Musculoskeletal: Yes: WNL Extremities: Yes: WNL Wound/Incision: Yes: Other Neurological: Yes: Alert Psychiatric: Yes: Other Labs: CBC, BMP 07/24/19 08:33 07/24/19 08:33 INR, PTT INR 1.09 (0.83-1.09) 07/23/19 15:15 Assessment/Plan Problem List - Problems (1) Dementia Code(s): F03.90 - UNSPECIFIED DEMENTIA WITHOUT BEHAVIORAL DISTURBANCE Qualifiers: Qualified Code(s): F03.90 - Unspecified dementia without behavioral disturbance (2) Sacral decubitus ulcer, stage IV Code(s): L89.154 - PRESSURE ULCER OF SACRAL REGION, STAGE 4 (3) Wound infection Code(s): T14.8XXA - OTHER INJURY OF UNSPECIFIED BODY REGION, INITIAL ENCOUNTER; L08.9 - LOCAL INFECTION OF THE SKIN AND SUBCUTANEOUS TISSUE, UNSP (4) Fever Code(s): R50.9 - FEVER, UNSPECIFIED (5) Anemia Code(s): D64.9 - ANEMIA, UNSPECIFIED Assessment/Plan 69 y.o. female with PMH of large Sacral ST IV DU, severe dementia, osteoporosis presented to the ER for fever and drainage from sacral DU and Lt buttock eschar. Pt was hospitalized on 07/07/19 and discharged 5 days ago after a course of antibiotics for wound infection. Infected ST IV Sacral DU Lt buttock/ischial necrotic eschar/ infection Fever Lactic acidosis ? PNA Severe dementia Anemia Obesity Osteoporosis plan continue current mgmt will change abx to meropenam await for final plan rest as per the team
--- NOTE | 2019-07-26 18:22 | OP ---
DATE OF OPERATION: DATE OF DICTATION: 07/26/2019 PREOPERATIVE DIAGNOSIS: Necrotic decubitus left buttock, necrotic decubitus right buttock, necrotic decubitus sacrum. POSTOPERATIVE DIAGNOSIS: Necrotic decubitus left buttock, necrotic decubitus right buttock, necrotic decubitus sacrum. PROCEDURE DONE: 1. Wide excisional debridement on the skin, subcutaneous tissue, muscle fascia , bilateral buttocks and sacrum. 2. Pulsavac wound care irrigation. 3. Application of dressing. SURGEON: Vito Lou MD. ANESTHESIA: General. HISTORY: Patient is a 69-year-old female seen previously regarding 2 large decubitus located on her both buttocks involving also the sacral area. Patient had been discharged for home care, came back because of deterioration of her wounds . DESCRIPTION OF PROCEDURE: Patient was brought to the operating room. Procedure had been explained to her daughter and informed consent obtained from daughter/ Health Proxy. (Patient is unable to understand.) Patient was transferred onto the operating table, placed in prone position. All areas were protected including the bony points, knees, arms. Care was taken regarding her contracted limb Right contracted arm to prevent any pressure injuries. Time-out was carried out. Patient was identified including the site of procedure, once agreed procedure General anesthesia was administered. Patient was intubated. Skin Lower back and sacral area was cleaned and draped in a standard aseptic manner using Betadine. Surgical site was then draped in a standard aseptic manner. Measurements Bilateral Decubitii plus sacrum : 11 cm x 31 cm x 4.25 cm depth. Excisional Debridement : Using 10-scalpel blade, necrotic tissue skin, S/C/Gluteal Muscles/ Fascia covering was excised Muscle, gluteus arely muscles, including gluteus medius. Significant necrosis extended into ligaments/bone. Necrotic issue was extending up to the spinal ligaments. After wide excisional debridement, hemostasis was secured with electrocautery.Setting 30/30 Pulsavac Irrigation with Antibiotic : using 3 L normal saline with bacitracin ointment. Hemostasis was again secured. Curette was also used remove necrotic tissue. Hemostasis was well secured. Dressing: Kerlix gauze : dilute solution of Betadine half and half with normal saline was used for soaking Kerlix dressings. Covered with Pads . Patient extubated after she was placed in supine position following transfer onto bed, transferred uneventfully to bed. EBL :50-75cc Clover DUNN/[id number] MTDAlfonso
[2019-07-27] MEDS ORDERED: VANCOMYCIN 1 GRAM (PRE-DOCKED) 1,000 MG/250 ML BAG IVPB SCH (01:00)
[2019-07-27] MEDS ORDERED: DEXTROSE 5%-WATER 100 ML IVPB ONE ×3 (02:17→13:30)
[2019-07-27] MEDS ORDERED: PIPERACILLIN/TAZOBACTAM 4.5 GM VIAL IVPB ONE ×2 (02:17→09:50)
[2019-07-27] MEDS: PIPERACILLIN/TAZOB 4.5 GM 4.5 GM in DEXTROSE 5%-WATER 100 ML IVPB SCH ×2 (02:23→10:04)
[2019-07-27] MEDS: HEPARIN NA (PORCINE) 5,000 UNITS/ML 1ML VIAL SQ SCH ×2 (10:55→22:00)
--- NOTE | 2019-07-27 12:19 | PN ---
Progress Note, Physician History of Present Illness: stable wound looked at complete debridement done wound vac to be placed today - Current Medication List Current Medications: Active Medications Acetaminophen (Tylenol -) 650 mg PO Q6H PRN PRN Reason: FEVER Heparin Sodium (Porcine) (Heparin -) 5,000 unit SQ BID CL[facility]ITA - Objective Vital Signs: Vital Signs Temperature 99.3 F 07/27/19 10:00 Pulse Rate 100 H 07/27/19 10:00 Respiratory Rate 20 07/27/19 10:00 Blood Pressure 112/49 L 07/27/19 10:00 O2 Sat by Pulse Oximetry (%) 97 07/27/19 09:00 Constitutional: Yes: No Distress, Calm Cardiovascular: Yes: S1, S2 Respiratory: Yes: Regular, CTA Bilaterally Gastrointestinal: Yes: Normal Bowel Sounds, Soft Musculoskeletal: Yes: WNL Extremities: Yes: WNL Wound/Incision: Yes: Dressing Removed, Other Neurological: Yes: Alert Labs: CBC, BMP 07/24/19 08:33 07/24/19 08:33 INR, PTT INR 1.09 (0.83-1.09) 07/23/19 15:15 Assessment/Plan Problem List - Problems (1) Dementia Code(s): F03.90 - UNSPECIFIED DEMENTIA WITHOUT BEHAVIORAL DISTURBANCE Qualifiers: Qualified Code(s): F03.90 - Unspecified dementia without behavioral disturbance (2) Sacral decubitus ulcer, stage IV Code(s): L89.154 - PRESSURE ULCER OF SACRAL REGION, STAGE 4 (3) Wound infection Code(s): T14.8XXA - OTHER INJURY OF UNSPECIFIED BODY REGION, INITIAL ENCOUNTER; L08.9 - LOCAL INFECTION OF THE SKIN AND SUBCUTANEOUS TISSUE, UNSP (4) Fever Code(s): R50.9 - FEVER, UNSPECIFIED (5) Anemia Code(s): D64.9 - ANEMIA, UNSPECIFIED Assessment/Plan 69 y.o. female with PMH of large Sacral ST IV DU, severe dementia, osteoporosis presented to the ER for fever and drainage from sacral DU and Lt buttock eschar. Pt was hospitalized on 07/07/19 and discharged 5 days ago after a course of antibiotics for wound infection. Infected ST IV Sacral DU Lt buttock/ischial necrotic eschar/ infection Fever Lactic acidosis ? PNA Severe dementia Anemia Obesity Osteoporosis plan continue current mgmt will change abx to meropenam
[2019-07-27] MEDS ORDERED: MEROPENEM 1 GM in DEXTROSE 5%-WATER 100 ML IVPB ONE (13:00)
[2019-07-27] MEDS ORDERED: MEROPENEM 1 GM VIAL (RESTRICTED TO ID) IVPB ONE (13:30)
--- NOTE | 2019-07-27 18:47 | PN ---
Progress Note, Physician - Current Medication List Current Medications: Active Medications Acetaminophen (Tylenol -) 650 mg PO Q6H PRN PRN Reason: FEVER Heparin Sodium (Porcine) (Heparin -) 5,000 unit SQ BID CL[facility]ITA Last Admin: 07/27/19 10:55 Dose: 5,000 unit - Objective Vital Signs: Vital Signs Temperature 99.1 F 07/27/19 14:32 Pulse Rate 114 H 07/27/19 14:32 Respiratory Rate 20 07/27/19 14:32 Blood Pressure 116/42 L 07/27/19 14:32 O2 Sat by Pulse Oximetry (%) 97 07/27/19 09:00 Constitutional: Yes: No Distress HENT: Yes: Atraumatic Neck: Yes: Supple Cardiovascular: Yes: Regular Rate and Rhythm Respiratory: Yes: CTA Bilaterally Gastrointestinal: Yes: Normal Bowel Sounds Extremities: Yes: WNL, Other (decub at buttocks) Neurological: Yes: Alert Labs: CBC, BMP 07/24/19 08:33 07/24/19 08:33 INR, PTT INR 1.09 (0.83-1.09) 07/23/19 15:15 Problem List - Problems (1) Dementia Code(s): F03.90 - UNSPECIFIED DEMENTIA WITHOUT BEHAVIORAL DISTURBANCE Qualifiers: Dementia type: unspecified type Dementia behavioral disturbance: without behavioral disturbance Qualified Code(s): F03.90 - Unspecified dementia without behavioral disturbance (2) Sacral decubitus ulcer, stage IV Assessment/Plan: on iv abx wound care debridement s/p post op day 1 Code(s): L89.154 - PRESSURE ULCER OF SACRAL REGION, STAGE 4 (3) Sepsis Assessment/Plan: iv abx cxs sent id consult Code(s): A41.9 - SEPSIS, UNSPECIFIED ORGANISM Qualifiers: Sepsis type: sepsis due to unspecified organism Severe sepsis acute organ dysfunction type: unspecified Severe sepsis shock status: unspecified (4) Wound infection Code(s): T14.8XXA - OTHER INJURY OF UNSPECIFIED BODY REGION, INITIAL ENCOUNTER; L08.9 - LOCAL INFECTION OF THE SKIN AND SUBCUTANEOUS TISSUE, UNSP (5) Functional quadriplegia Code(s): R53.2 - FUNCTIONAL QUADRIPLEGIA
[2019-07-28 09:38] LABS: BASO % 0.5 % (0-2.0); EOS % 1.2 % (0-4.5); HEMOGLOBIN 8.4 GM/dL (10.7-15.3); LYMPH % 24.8 % (8-40); MCH 33.7 pg (25.7-33.7); MCHC 33.7 g/dl (32.0-36.0); MEAN CELL VOLUME 100.1 fl (80-96); MEAN PLT VOLUME 7.5 fl (7.5-11.1); MONO % 9.1 % (3.8-10.2); NEUT % 64.4 % (42.8-82.8); PLATELET COUNT 278 K/MM3 (134-434); RBC 2.49 M/mm3 (3.60-5.2); RDW 16.1 % (11.6-15.6)
[2019-07-28 10:07] LABS: ALBUMIN 1.6 g/dl (3.4-5.0); BILIRUBIN,TOTAL 0.4 mg/dL (0.2-1); BLOOD UREA NITROGEN 5.9 mg/dL (7-18); CALCIUM 7.9 mg/dL (8.5-10.1); CREATININE 0.6 mg/dL (0.55-1.3); TOT PROT 6.3 g/dl (6.4-8.2)
[2019-07-28] MEDS: HEPARIN NA (PORCINE) 5,000 UNITS/ML 1ML VIAL SQ SCH ×2 (11:36→22:13)
--- NOTE | 2019-07-28 12:17 | PN ---
Progress Note, Physician History of Present Illness: stable wbc normalized afebrile - Current Medication List Current Medications: Active Medications Acetaminophen (Tylenol -) 650 mg PO Q6H PRN PRN Reason: FEVER Heparin Sodium (Porcine) (Heparin -) 5,000 unit SQ BID CL[facility]ITA Last Admin: 07/28/19 11:36 Dose: 5,000 unit - Objective Vital Signs: Vital Signs Temperature 99.2 F 07/28/19 06:00 Pulse Rate 116 H 07/28/19 06:00 Respiratory Rate 07/28/19 06:00 Blood Pressure 133/62 07/28/19 06:00 O2 Sat by Pulse Oximetry (%) 97 07/27/19 09:00 Constitutional: Yes: No Distress, Calm Cardiovascular: Yes: S1, S2 Respiratory: Yes: Regular, CTA Bilaterally Musculoskeletal: Yes: WNL Extremities: Yes: Other Wound/Incision: Yes: Dressing Dry and Intact Neurological: Yes: Alert Psychiatric: Yes: Alert Labs: CBC, BMP 07/28/19 07:56 07/28/19 07:56 INR, PTT INR 1.09 (0.83-1.09) 07/23/19 15:15 Assessment/Plan Problem List - Problems (1) Dementia Code(s): F03.90 - UNSPECIFIED DEMENTIA WITHOUT BEHAVIORAL DISTURBANCE Qualifiers: Qualified Code(s): F03.90 - Unspecified dementia without behavioral disturbance (2) Sacral decubitus ulcer, stage IV Code(s): L89.154 - PRESSURE ULCER OF SACRAL REGION, STAGE 4 (3) Wound infection Code(s): T14.8XXA - OTHER INJURY OF UNSPECIFIED BODY REGION, INITIAL ENCOUNTER; L08.9 - LOCAL INFECTION OF THE SKIN AND SUBCUTANEOUS TISSUE, UNSP (4) Fever Code(s): R50.9 - FEVER, UNSPECIFIED (5) Anemia Code(s): D64.9 - ANEMIA, UNSPECIFIED Assessment/Plan 69 y.o. female with PMH of large Sacral ST IV DU, severe dementia, osteoporosis presented to the ER for fever and drainage from sacral DU and Lt buttock eschar. Pt was hospitalized on 07/07/19 and discharged 5 days ago after a course of antibiotics for wound infection. Infected ST IV Sacral DU Lt buttock/ischial necrotic eschar/ infection Fever Lactic acidosis ? PNA Severe dementia Anemia Obesity Osteoporosis plan continue current mgmt meropenam await for final plan rest as per the team wound care
--- NOTE | 2019-07-28 12:31 | PN ---
Progress Note, Physician - Current Medication List Current Medications: Active Medications Acetaminophen (Tylenol -) 650 mg PO Q6H PRN PRN Reason: FEVER Heparin Sodium (Porcine) (Heparin -) 5,000 unit SQ BID CL[facility] Last Admin: 07/28/19 11:36 Dose: 5,000 unit - Objective Vital Signs: Vital Signs Temperature 99.2 F 07/28/19 06:00 Pulse Rate 116 H 07/28/19 06:00 Respiratory Rate 07/28/19 06:00 Blood Pressure 133/62 07/28/19 06:00 O2 Sat by Pulse Oximetry (%) 97 07/27/19 09:00 Constitutional: Yes: No Distress HENT: Yes: Atraumatic Neck: Yes: Supple Cardiovascular: Yes: Regular Rate and Rhythm Respiratory: Yes: CTA Bilaterally Gastrointestinal: Yes: Normal Bowel Sounds Extremities: Yes: WNL Neurological: Yes: Alert Labs: CBC, BMP 07/28/19 07:56 07/28/19 07:56 INR, PTT INR 1.09 (0.83-1.09) 07/23/19 15:15 Problem List - Problems (1) Dementia Code(s): F03.90 - UNSPECIFIED DEMENTIA WITHOUT BEHAVIORAL DISTURBANCE Qualifiers: Dementia type: unspecified type Dementia behavioral disturbance: without behavioral disturbance Qualified Code(s): F03.90 - Unspecified dementia without behavioral disturbance (2) Sacral decubitus ulcer, stage IV Assessment/Plan: iv abx as per ID wound care debridement s/p post op day 1 Code(s): L89.154 - PRESSURE ULCER OF SACRAL REGION, STAGE 4 (3) Sepsis Assessment/Plan: id on board Code(s): A41.9 - SEPSIS, UNSPECIFIED ORGANISM Qualifiers: Sepsis type: sepsis due to unspecified organism Severe sepsis acute organ dysfunction type: unspecified Severe sepsis shock status: unspecified (4) Wound infection Code(s): T14.8XXA - OTHER INJURY OF UNSPECIFIED BODY REGION, INITIAL ENCOUNTER; L08.9 - LOCAL INFECTION OF THE SKIN AND SUBCUTANEOUS TISSUE, UNSP (5) Functional quadriplegia Code(s): R53.2 - FUNCTIONAL QUADRIPLEGIA Assessment/Plan WOUND VAC IN PLACE
--- NOTE | 2019-07-28 13:58 | PN ---
Progress Note, Physician - Current Medication List Current Medications: Active Medications Acetaminophen (Tylenol -) 650 mg PO Q6H PRN PRN Reason: FEVER Heparin Sodium (Porcine) (Heparin -) 5,000 unit SQ BID CL[facility] Last Admin: 07/28/19 11:36 Dose: 5,000 unit - Objective Vital Signs: Vital Signs Temperature 99.2 F 07/28/19 06:00 Pulse Rate 116 H 07/28/19 06:00 Respiratory Rate 20 07/28/19 06:00 Blood Pressure 133/62 07/28/19 06:00 O2 Sat by Pulse Oximetry (%) 97 07/27/19 09:00 Labs: CBC, BMP 07/28/19 07:56 07/28/19 07:56 INR, PTT INR 1.09 (0.83-1.09) 07/23/19 15:15 Assessment/Plan Post Op day 2 Selected Entries 07/28/19 06:00 Temperature 99.2 F Pulse Rate 116 H Blood Pressure 133/62 Laboratory Tests 07/28/19 07/28/19 07:56 07:56 WBC 10.0 Hgb 8.4 L Hct 25.0 L MCV 100.1 H RDW 16.1 H BUN 5.9 L Random Glucose 121 H 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
--- NOTE | 2019-07-28 15:09 | PN ---
Progress Note (short form) - Note Progress Note: Anesthesia postop note 69 y/o F s/p GA for sacral debridment POD#2, vss, awake, no complaints, daughter at bedside. No anesthesia complications.
--- NOTE | 2019-07-28 15:50 | PATH ---
Surgical Pathology Report Patient Name: HERMINIA CHARLES Med. Rec. #: [id number] /Age/Gender: 1950 (Age: 69) / F Account: [id number] Location: [address] [place] [address]/[facility] Taken: 07/26/2019 Received: 07/27/2019 Reported: 07/28/2019 Physicians: Clover Flor M.D. Specimen(s) Received DEBRIDED TISSUE SACRAL REGION Clinical History Stage IV ulcer sacral region, bilateral buttocks/sacrum Final Diagnosis DEBRIDED TISSUE SACRAL REGION: FIBROADIPOSE TISSUE WITH GANGRENOUS NECROSIS, SEVERE ACUTE AND CHRONIC INFLAMMATION WITH ABSCESS FORMATION. Electronically Signed Dorian Carver M.D. Gross Description Received in formalin labeled "debrided tissue sacral region," is an 11.5 x 8.0 x 5.0 cm aggregate of marcus green, necrotic skin and soft tissue. A care support representative section is submitted in one cassette. 07/27/[address] [facility]07/27/2019
[2019-07-29 00:11] VITALS: BMI 26.9
[2019-07-29] MEDS: HEPARIN NA (PORCINE) 5,000 UNITS/ML 1ML VIAL SQ SCH ×2 (11:20→23:37)
--- NOTE | 2019-07-29 11:53 | DS ---
Physical Examination Vital Signs: Vital Signs Temperature 99.4 F 07/29/19 06:00 Pulse Rate 102 H 07/29/19 06:00 Respiratory Rate 20 07/29/19 06:00 Blood Pressure 109/54 L 07/29/19 06:00 O2 Sat by Pulse Oximetry (%) 97 07/27/19 09:00 Labs: CBC, BMP 07/28/19 07:56 07/28/19 07:56 Discharge Summary Problems reviewed: Yes Reason For Visit: ULCER OF SACRAL REGION STAGE 4 Current Active Problems Anemia (Acute) Dementia (Acute) Fever (Acute) Functional quadriplegia (Acute) Sacral decubitus ulcer, stage IV (Acute) Sepsis (Acute) Wound infection (Acute) Condition: Guarded - Instructions Diet, Activity, Other Instructions: wound care orders from WOUND CARE OR ID SEE WOUND CARE DEPT PER DR DR CELAYA INSTRUCTIONS Referrals: Shelby Webb DO [Primary Care Provider] - - Home Medications Comprehensive Discharge Medication List: Ambulatory Orders Alendronate Sodium [Fosamax] 1 tab PO WEEKLY 07/07/19 Ammonium Lactate [Ignacia-Hydrolac] 1 applic TD BID 07/08/19
--- NOTE | 2019-07-29 12:10 | PN ---
Progress Note, Physician History of Present Illness: s/p sacral decub ulcer debridment and wound vac placement, nonverbal. - Current Medication List Current Medications: Active Medications Acetaminophen (Tylenol -) 650 mg PO Q6H PRN PRN Reason: FEVER Last Admin: 07/28/19 20:24 Dose: 650 mg Heparin Sodium (Porcine) (Heparin -) 5,000 unit SQ BID CL[facility]ITA Last Admin: 07/29/19 11:20 Dose: 5,000 unit - Objective Vital Signs: Vital Signs Temperature 99.4 F 07/29/19 06:00 Pulse Rate 102 H 07/29/19 06:00 Respiratory Rate 07/29/19 06:00 Blood Pressure 109/54 L 07/29/19 06:00 O2 Sat by Pulse Oximetry (%) 97 07/27/19 09:00 Constitutional: Yes: No Distress, Calm, Thin Neck: Yes: Supple Cardiovascular: Yes: Regular Rate and Rhythm Respiratory: Yes: Regular, CTA Bilaterally Gastrointestinal: Yes: Normal Bowel Sounds, Soft Edema: No Labs: CBC, BMP 07/28/19 07:56 07/28/19 07:56 INR, PTT INR 1.09 (0.83-1.09) 07/23/19 15:15 Problem List - Problems (1) Dementia Code(s): F03.90 - UNSPECIFIED DEMENTIA WITHOUT BEHAVIORAL DISTURBANCE Qualifiers: Dementia type: unspecified type Dementia behavioral disturbance: without behavioral disturbance Qualified Code(s): F03.90 - Unspecified dementia without behavioral disturbance (2) Functional quadriplegia Code(s): R53.2 - FUNCTIONAL QUADRIPLEGIA (3) Sacral decubitus ulcer, stage IV Code(s): L89.154 - PRESSURE ULCER OF SACRAL REGION, STAGE 4 (4) Wound infection Code(s): T14.8XXA - OTHER INJURY OF UNSPECIFIED BODY REGION, INITIAL ENCOUNTER; L08.9 - LOCAL INFECTION OF THE SKIN AND SUBCUTANEOUS TISSUE, UNSP Assessment/Plan 1. Sacral decuiti ulcer post debridement and wound vac placement 2. Dementia 3, Osteoporosis PLAN: 1. Wound care 2. Echocardiography reviewed 3. Completed antibiotics course per ID 4. DVT prophylaxis 5. D/c planning
--- NOTE | 2019-07-29 12:19 | PN ---
Progress Note, Physician History of Present Illness: stable no new issues - Current Medication List Current Medications: Active Medications Acetaminophen (Tylenol -) 650 mg PO Q6H PRN PRN Reason: FEVER Last Admin: 07/28/19 20:24 Dose: 650 mg Heparin Sodium (Porcine) (Heparin -) 5,000 unit SQ BID CLARITA Last Admin: 07/29/19 11:20 Dose: 5,000 unit - Objective Vital Signs: Vital Signs Temperature 99.4 F 07/29/19 06:00 Pulse Rate 102 H 07/29/19 06:00 Respiratory Rate 07/29/19 06:00 Blood Pressure 109/54 L 07/29/19 06:00 O2 Sat by Pulse Oximetry (%) 97 07/27/19 09:00 Constitutional: Yes: No Distress, Calm Cardiovascular: Yes: S1, S2 Respiratory: Yes: Regular, CTA Bilaterally Gastrointestinal: Yes: Normal Bowel Sounds, Soft Musculoskeletal: Yes: WNL Extremities: Yes: Other Wound/Incision: Yes: Dressing Dry and Intact Neurological: Yes: Alert, Oriented Psychiatric: Yes: Alert, Oriented Labs: CBC, BMP 07/28/19 07:56 07/28/19 07:56 INR, PTT INR 1.09 (0.83-1.09) 07/23/19 15:15 Assessment/Plan Problem List - Problems (1) Dementia Code(s): F03.90 - UNSPECIFIED DEMENTIA WITHOUT BEHAVIORAL DISTURBANCE Qualifiers: Qualified Code(s): F03.90 - Unspecified dementia without behavioral disturbance (2) Sacral decubitus ulcer, stage IV Code(s): L89.154 - PRESSURE ULCER OF SACRAL REGION, STAGE 4 (3) Wound infection Code(s): T14.8XXA - OTHER INJURY OF UNSPECIFIED BODY REGION, INITIAL ENCOUNTER; L08.9 - LOCAL INFECTION OF THE SKIN AND SUBCUTANEOUS TISSUE, UNSP (4) Fever Code(s): R50.9 - FEVER, UNSPECIFIED (5) Anemia Code(s): D64.9 - ANEMIA, UNSPECIFIED Assessment/Plan 69 y.o. female with PMH of large Sacral ST IV DU, severe dementia, osteoporosis presented to the ER for fever and drainage from sacral DU and Lt buttock eschar. Pt was hospitalized on 07/07/19 and discharged 5 days ago after a course of antibiotics for wound infection. Infected ST IV Sacral DU Lt buttock/ischial necrotic eschar/ infection Fever Lactic acidosis ? PNA Severe dementia Anemia Obesity Osteoporosis plan continue current mgmt meropenam await for final plan rest as per the team wound care
--- NOTE | 2019-07-29 17:35 | PN ---
Progress Note, Physician - Current Medication List Current Medications: Active Medications Acetaminophen (Tylenol -) 650 mg PO Q6H PRN PRN Reason: FEVER Last Admin: 07/28/19 20:24 Dose: 650 mg Heparin Sodium (Porcine) (Heparin -) 5,000 unit SQ BID CL[facility]ITA Last Admin: 07/29/19 11:20 Dose: 5,000 unit - Objective Vital Signs: Vital Signs Temperature 99.9 F H 07/29/19 15:55 Pulse Rate 111 H 07/29/19 09:00 Respiratory Rate 07/29/19 09:00 Blood Pressure 156/66 07/29/19 09:00 O2 Sat by Pulse Oximetry (%) 97 07/27/19 09:00 Constitutional: Yes: No Distress HENT: Yes: Atraumatic Neck: Yes: Supple Cardiovascular: Yes: Regular Rate and Rhythm Respiratory: Yes: CTA Bilaterally Gastrointestinal: Yes: Normal Bowel Sounds Extremities: Yes: Other (sCRAL DECUB) Neurological: Yes: Alert Labs: CBC, BMP 07/28/19 07:56 07/28/19 07:56 INR, PTT INR 1.09 (0.83-1.09) 07/23/19 15:15 Problem List - Problems (1) Dementia Code(s): F03.90 - UNSPECIFIED DEMENTIA WITHOUT BEHAVIORAL DISTURBANCE Qualifiers: Dementia type: unspecified type Dementia behavioral disturbance: without behavioral disturbance Qualified Code(s): F03.90 - Unspecified dementia without behavioral disturbance (2) Sacral decubitus ulcer, stage IV Assessment/Plan: iv abx as per ID wound care debridement s/p post op day 1 Code(s): L89.154 - PRESSURE ULCER OF SACRAL REGION, STAGE 4 (3) Sepsis Assessment/Plan: id on board Code(s): A41.9 - SEPSIS, UNSPECIFIED ORGANISM Qualifiers: Sepsis type: sepsis due to unspecified organism Severe sepsis acute organ dysfunction type: unspecified Severe sepsis shock status: unspecified (4) Wound infection Code(s): T14.8XXA - OTHER INJURY OF UNSPECIFIED BODY REGION, INITIAL ENCOUNTER; L08.9 - LOCAL INFECTION OF THE SKIN AND SUBCUTANEOUS TISSUE, UNSP (5) Functional quadriplegia Code(s): R53.2 - FUNCTIONAL QUADRIPLEGIA
[2019-07-29] MEDS ORDERED: MEROPENEM 1 GM VIAL (RESTRICTED TO ID) IVPB ONE (18:01)
[2019-07-29] MEDS ORDERED: DEXTROSE 5%-WATER 100 ML IVPB ONE (18:02)
[2019-07-29] MEDS: MEROPENEM 1 GM in DEXTROSE 5%-WATER 100 ML IVPB SCH (18:24)
[2019-07-30] MEDS ORDERED: DEXTROSE 5%-WATER 100 ML IVPB ONE ×3 (02:11→15:39)
[2019-07-30] MEDS ORDERED: MEROPENEM 1 GM VIAL (RESTRICTED TO ID) IVPB ONE ×3 (02:11→15:38)
[2019-07-30] MEDS: MEROPENEM 1 GM in DEXTROSE 5%-WATER 100 ML IVPB SCH ×3 (02:24→17:18)
--- NOTE | 2019-07-30 10:17 | PN ---
Progress Note, Physician History of Present Illness: s/p sacral decub ulcer debridment and wound vac placement, nonverbal, eating meals. - Current Medication List Current Medications: Active Medications Acetaminophen (Tylenol -) 650 mg PO Q6H PRN PRN Reason: FEVER Last Admin: 07/28/19 20:24 Dose: 650 mg Heparin Sodium (Porcine) (Heparin -) 5,000 unit SQ BID CL[place] Last Admin: 07/29/19 23:37 Dose: 5,000 unit Meropenem 1 gm/ Dextrose 100 mls @ 200 mls/hr IVPB Q8H-IV CL[facility] Last Admin: 07/30/19 02:24 Dose: 200 mls/hr - Objective Vital Signs: Vital Signs Temperature 99.4 F 07/30/19 05:58 Pulse Rate 108 H 07/30/19 05:58 Respiratory Rate 18 07/30/19 05:58 Blood Pressure 105/54 L 07/30/19 05:58 O2 Sat by Pulse Oximetry (%) 97 07/27/19 09:00 Constitutional: Yes: No Distress, Calm, Thin Neck: Yes: Supple Cardiovascular: Yes: Regular Rate and Rhythm Respiratory: Yes: Regular, CTA Bilaterally Gastrointestinal: Yes: Normal Bowel Sounds, Soft Edema: No Labs: CBC, BMP 07/28/19 07:56 07/28/19 07:56 INR, PTT INR 1.09 (0.83-1.09) 07/23/19 15:15 Problem List - Problems (1) Dementia Code(s): F03.90 - UNSPECIFIED DEMENTIA WITHOUT BEHAVIORAL DISTURBANCE Qualifiers: Dementia type: unspecified type Dementia behavioral disturbance: without behavioral disturbance Qualified Code(s): F03.90 - Unspecified dementia without behavioral disturbance (2) Functional quadriplegia Code(s): R53.2 - FUNCTIONAL QUADRIPLEGIA (3) Sacral decubitus ulcer, stage IV Code(s): L89.154 - PRESSURE ULCER OF SACRAL REGION, STAGE 4 (4) Wound infection Code(s): T14.8XXA - OTHER INJURY OF UNSPECIFIED BODY REGION, INITIAL ENCOUNTER; L08.9 - LOCAL INFECTION OF THE SKIN AND SUBCUTANEOUS TISSUE, UNSP Assessment/Plan 1. Sacral stage IV decubitus ulcer post debridement and wound vac placement 2. Dementia 3. Osteoporosis PLAN: 1. Wound care 2. Echocardiography reviewed 3. Completing antibiotics course per ID 4. DVT prophylaxis 5. D/c planning to NH
[2019-07-30] MEDS: HEPARIN NA (PORCINE) 5,000 UNITS/ML 1ML VIAL SQ SCH ×2 (10:21→22:49)
--- NOTE | 2019-07-30 12:51 | PN ---
Progress Note, Physician History of Present Illness: stable no new issues daughter in room - Current Medication List Current Medications: Active Medications Acetaminophen (Tylenol -) 650 mg PO Q6H PRN PRN Reason: FEVER Last Admin: 07/28/19 20:24 Dose: 650 mg Heparin Sodium (Porcine) (Heparin -) 5,000 unit SQ BID [place] Last Admin: 07/30/19 10:21 Dose: 5,000 unit Meropenem 1 gm/ Dextrose 100 mls @ 200 mls/hr IVPB Q8H-IV [facility] Last Admin: 07/30/19 10:21 Dose: 200 mls/hr - Objective Vital Signs: Vital Signs Temperature 99.2 F 07/30/19 09:00 Pulse Rate 106 H 07/30/19 09:00 Respiratory Rate 20 07/30/19 09:00 Blood Pressure 146/70 07/30/19 09:00 O2 Sat by Pulse Oximetry (%) 97 07/27/19 09:00 Constitutional: Yes: No Distress, Calm Cardiovascular: Yes: S1, S2 Respiratory: Yes: Regular, CTA Bilaterally Gastrointestinal: Yes: Normal Bowel Sounds, Soft Musculoskeletal: Yes: WNL Extremities: Yes: Other Wound/Incision: Yes: Dressing Dry and Intact Neurological: Yes: Other (dementia) Psychiatric: Yes: Alert Labs: CBC, BMP 07/28/19 07:56 07/28/19 07:56 INR, PTT INR 1.09 (0.83-1.09) 07/23/19 15:15 Assessment/Plan Problem List - Problems (1) Dementia Code(s): F03.90 - UNSPECIFIED DEMENTIA WITHOUT BEHAVIORAL DISTURBANCE Qualifiers: Qualified Code(s): F03.90 - Unspecified dementia without behavioral disturbance (2) Sacral decubitus ulcer, stage IV Code(s): L89.154 - PRESSURE ULCER OF SACRAL REGION, STAGE 4 (3) Wound infection Code(s): T14.8XXA - OTHER INJURY OF UNSPECIFIED BODY REGION, INITIAL ENCOUNTER; L08.9 - LOCAL INFECTION OF THE SKIN AND SUBCUTANEOUS TISSUE, UNSP (4) Fever Code(s): R50.9 - FEVER, UNSPECIFIED (5) Anemia Code(s): D64.9 - ANEMIA, UNSPECIFIED Assessment/Plan 69 y.o. female with PMH of large Sacral ST IV DU, severe dementia, osteoporosis presented to the ER for fever and drainage from sacral DU and Lt buttock eschar. Pt was hospitalized on 07/07/19 and discharged 5 days ago after a course of antibiotics for wound infection. Infected ST IV Sacral DU Lt buttock/ischial necrotic eschar/ infection Fever Lactic acidosis ? PNA Severe dementia Anemia Obesity Osteoporosis plan continue current mgmt ertapenam for 11 days
--- NOTE | 2019-07-30 18:39 | PN ---
Progress Note, Physician - Current Medication List Current Medications: Active Medications Acetaminophen (Tylenol -) 650 mg PO Q6H PRN PRN Reason: FEVER Last Admin: 07/28/19 20:24 Dose: 650 mg Heparin Sodium (Porcine) (Heparin -) 5,000 unit SQ BID [place] Last Admin: 07/30/19 10:21 Dose: 5,000 unit Meropenem 1 gm/ Dextrose 100 mls @ 200 mls/hr IVPB Q8H-IV [facility] Last Admin: 07/30/19 17:18 Dose: 200 mls/hr - Objective Vital Signs: Vital Signs Temperature 98.1 F 07/30/19 15:13 Pulse Rate 113 H 07/30/19 15:13 Respiratory Rate 19 07/30/19 15:13 Blood Pressure 99/69 07/30/19 15:13 O2 Sat by Pulse Oximetry (%) 97 07/27/19 09:00 Constitutional: Yes: No Distress HENT: Yes: Atraumatic Neck: Yes: Supple Cardiovascular: Yes: Regular Rate and Rhythm Respiratory: Yes: CTA Bilaterally Gastrointestinal: Yes: Normal Bowel Sounds Extremities: Yes: Other (SACRAL DECUB) Neurological: Yes: Alert Labs: CBC, BMP 07/28/19 07:56 07/28/19 07:56 INR, PTT INR 1.09 (0.83-1.09) 07/23/19 15:15 Problem List - Problems (1) Dementia Code(s): F03.90 - UNSPECIFIED DEMENTIA WITHOUT BEHAVIORAL DISTURBANCE Qualifiers: Dementia type: unspecified type Dementia behavioral disturbance: without behavioral disturbance Qualified Code(s): F03.90 - Unspecified dementia without behavioral disturbance (2) Sacral decubitus ulcer, stage IV Assessment/Plan: iv abx as per ID wound care debridement s/p Code(s): L89.154 - PRESSURE ULCER OF SACRAL REGION, STAGE 4 (3) Sepsis Assessment/Plan: id on board ON ABX Code(s): A41.9 - SEPSIS, UNSPECIFIED ORGANISM Qualifiers: Sepsis type: sepsis due to unspecified organism Severe sepsis acute organ dysfunction type: unspecified Severe sepsis shock status: unspecified (4) Wound infection Code(s): T14.8XXA - OTHER INJURY OF UNSPECIFIED BODY REGION, INITIAL ENCOUNTER; L08.9 - LOCAL INFECTION OF THE SKIN AND SUBCUTANEOUS TISSUE, UNSP (5) Functional quadriplegia Code(s): R53.2 - FUNCTIONAL QUADRIPLEGIA
[2019-07-31] MEDS ORDERED: MEROPENEM 1 GM VIAL (RESTRICTED TO ID) IVPB ONE ×2 (01:29→09:13)
[2019-07-31] MEDS ORDERED: DEXTROSE 5%-WATER 100 ML IVPB ONE ×2 (01:31→09:13)
[2019-07-31] MEDS: MEROPENEM 1 GM in DEXTROSE 5%-WATER 100 ML IVPB SCH ×2 (01:55→09:34)
[2019-07-31 06:05] VITALS: TEMP 98.2
[2019-07-31 07:58] VITALS: BP 128/62; PULSE 108
[2019-07-31] MEDS: HEPARIN NA (PORCINE) 5,000 UNITS/ML 1ML VIAL SQ SCH (09:34)
--- NOTE | 2019-07-31 10:53 | PN ---
Progress Note, Physician History of Present Illness: stable no new issues daughter in room - Current Medication List Current Medications: Active Medications Acetaminophen (Tylenol -) 650 mg PO Q6H PRN PRN Reason: FEVER Last Admin: 07/28/19 20:24 Dose: 650 mg Heparin Sodium (Porcine) (Heparin -) 5,000 unit SQ BID [place] Last Admin: 07/31/19 09:34 Dose: 5,000 unit Meropenem 1 gm/ Dextrose 100 mls @ 200 mls/hr IVPB Q8H-IV [facility] Last Admin: 07/31/19 09:34 Dose: 200 mls/hr - Objective Vital Signs: Vital Signs Temperature 98.2 F 07/31/19 07:48 Pulse Rate 108 H 07/31/19 07:48 Respiratory Rate 16 07/31/19 07:48 Blood Pressure 128/62 07/31/19 07:48 O2 Sat by Pulse Oximetry (%) 97 07/31/19 09:00 Constitutional: Yes: No Distress, Calm HENT: Yes: Atraumatic, Normocephalic Cardiovascular: Yes: S1, S2 Respiratory: Yes: Regular, CTA Bilaterally Gastrointestinal: Yes: Normal Bowel Sounds, Soft Musculoskeletal: Yes: WNL Wound/Incision: Yes: Dressing Dry and Intact Psychiatric: Yes: Alert, Oriented Labs: CBC, BMP 07/28/19 07:56 07/28/19 07:56 INR, PTT INR 1.09 (0.83-1.09) 07/23/19 15:15 Assessment/Plan Problem List - Problems (1) Dementia Code(s): F03.90 - UNSPECIFIED DEMENTIA WITHOUT BEHAVIORAL DISTURBANCE Qualifiers: Qualified Code(s): F03.90 - Unspecified dementia without behavioral disturbance (2) Sacral decubitus ulcer, stage IV Code(s): L89.154 - PRESSURE ULCER OF SACRAL REGION, STAGE 4 (3) Wound infection Code(s): T14.8XXA - OTHER INJURY OF UNSPECIFIED BODY REGION, INITIAL ENCOUNTER; L08.9 - LOCAL INFECTION OF THE SKIN AND SUBCUTANEOUS TISSUE, UNSP (4) Fever Code(s): R50.9 - FEVER, UNSPECIFIED (5) Anemia Code(s): D64.9 - ANEMIA, UNSPECIFIED Assessment/Plan 69 y.o. female with PMH of large Sacral ST IV DU, severe dementia, osteoporosis presented to the ER for fever and drainage from sacral DU and Lt buttock eschar. Pt was hospitalized on 07/07/19 and discharged 5 days ago after a course of antibiotics for wound infection. Infected ST IV Sacral DU Lt buttock/ischial necrotic eschar/ infection Fever Lactic acidosis ? PNA Severe dementia Anemia Obesity Osteoporosis plan continue current mgmt ertapenam for 11 days
--- NOTE | 2019-08-03 19:14 | DS ---
Physical Examination Vital Signs: Vital Signs Temperature 98.2 F 07/31/19 07:48 Pulse Rate 108 H 07/31/19 07:48 Respiratory Rate 16 07/31/19 07:48 Blood Pressure 128/62 07/31/19 07:48 O2 Sat by Pulse Oximetry (%) 97 07/31/19 09:00 Labs: CBC, BMP 07/28/19 07:56 07/28/19 07:56 Discharge Summary Problems reviewed: Yes Reason For Visit: ULCER OF SACRAL REGION STAGE 4 Condition: Guarded - Instructions Diet, Activity, Other Instructions: wound care orders from WOUND CARE OR ID SEE WOUND CARE DEPT PER DR DR CELAYA INSTRUCTIONS ERTAPENAM IV FOR 11 MORE DAYS Referrals: Paul Shaikh MD [Staff Physician] - Shelby Webb DO [Primary Care Provider] - Clinton Salamanca MD [Staff Physician] - Vito Celaya MD [Staff Physician] - Disposition: [facility]NS/HOME HEALTH CARE - Home Medications Comprehensive Discharge Medication List: Ambulatory Orders Alendronate Sodium [Fosamax] 1 tab PO WEEKLY 07/07/19 Ammonium Lactate [Ignacia-Hydrolac] 1 applic TD BID 07/08/19 Ertapenem Sodium - 1 Gram [Invanz (Pre-Docked)] 1 gm IVPB DAILY 11 Days bag MDD 1 07/31/19
== END 2019-07-31 13:23 | disposition home health service (06) | DRG 853 ==
LOC: JER 13:55 → JERBED 16:26 → J5S 18:03 → J6S 07-26 13:41 → JSAMEDAYSX 07-26 13:42 → J6S 07-26 18:09
PROVIDERS: ADMIT Internal Medicine; ATTEND Internal Medicine
PROC: 0KBN0ZZ Excision of Right Hip Muscle, Open Approach (ICD-10-PCS; 2019-07-26)
PROC: 0KBP0ZZ Excision of Left Hip Muscle, Open Approach (ICD-10-PCS; principal; 2019-07-26 14:00)
PROC: 02HV33Z Insertion of Infusion Device into Superior Vena Cava, Percutaneous Approach (ICD-10-PCS; 2019-07-30)
DX: A41.9 Sepsis, unspecified organism (principal); L89.154 Pressure ulcer of sacral region, stage 4; R53.2 Functional quadriplegia; J18.9 Pneumonia, unspecified organism; E87.2 Acidosis; L89.310 Pressure ulcer of right buttock, unstageable; F03.90 Unspecified dementia, unspecified severity, without behavioral disturbance, psychotic disturbance, mood disturbance, and anxiety; R50.9 Fever, unspecified; L89.320 Pressure ulcer of left buttock, unstageable; D64.9 Anemia, unspecified; E66.9 Obesity, unspecified; Z68.27 Body mass index [BMI] 27.0-27.9, adult; M81.0 Age-related osteoporosis without current pathological fracture
CPT/HCPCS: 36415; 36569; 71045-TC-FY; 77001-TC-FY; 80053; 81003; 82962; 83605; 84484; 85025; 85610; 85730; 86850; 86900; 86901; 87040; 87070; 87086; 87186; 87205; 87804; 88304-TC; 93005; 93010; 93306-TC; 94760; 99284-25; C1751; J0131; J1644; J7030